=== PATIENT | female | born 1945 | race African-American/Black ===

== ENCOUNTER 2016-05-30 10:23 | Inpatient (IN) ==
[2016-05-30] MEDS ORDERED: 0.9 % Sodium Chloride 1,000 ML IVC ONE ×2 (10:26→13:13)
--- NOTE | 2016-05-30 10:30 | Emergency Department Note ---
Disposition Clinical Impression: Altered mental status, CVA (cerebral vascular accident), Abnormal liver function tests, Elevated troponin, Abnormal EKG, Frail elderly, Hyperlipidemia, Hypertension Disposition: Admitted As Inpatient Referrals: NO,PCP [Primary Care Provider] - Forms: ED Satisfaction Letter General Adult HPI - General Chief complaint: ED Altered Mental Status Stated complaint: Confusion Time Seen by Provider: 05/30/16 10:26 Source: patient, EMS, other (Home health nurse) - History of Present Illness HPI Narrative: 70-year-old female sent in from home via the patient's home health provider who came to check her. The patient was sent in by EMS for evaluation regarding confusion. The patient is reportedly not usually confused, the patient recognizes that has been confused for the last 3 days, and similar reports are obtained by EMS through the patient's home health provider. There is no history of fall or injury. The patient denies any chest pain shortness of breath or abdominal pain but reports she has a lot of gas. There is no history of vomiting or diarrhea. He has had a slight cough. There is no history of convulsion or headache neck stiffness or rash. No acute back pain. No trouble moving the arms or legs independently. No dysarthria. There is no history of bleeding, the patient does reportedly take NOAC type medication. There is no history of bowel or bladder dysfunction or urinary issues. No rashes reported or noted. The patient apparently knows her name and location but is confused as to dates and thinks it is 1964. Onset (ago): day(s) - Related Data Home Medications Medication Instructions Recorded Confirmed Albuterol Sulfate [Proair Hfa] 2 puff IH Q4H PRN 12/07/15 12/07/15 Alendronate Sodium [Fosamax] 70 mg PO QWEEK 12/07/15 12/07/15 Apixaban [Eliquis] 5 mg PO BID 12/07/15 12/07/15 Aspirin Enteric Coated [Aspirin EC] 81 mg PO DAILY 12/07/15 12/07/15 Calcium Carbonate/Vitamin D3 1 tab PO DAILY 12/07/15 12/07/15 [Calcium 500-Vit D3 400 Tablet] Cyclobenzaprine HCl 5 mg PO TID PRN 12/07/15 12/07/15 Esomeprazole Magnesium [Nexium] 40 mg PO DAILY 12/07/15 12/07/15 Famotidine [Pepcid] 20 - 40 mg PO DAILY 12/07/15 12/07/15 Fluticasone Propionate Nasal 1 spray NS DAILY 12/07/15 12/07/15 [Flonase] Fluticasone/Salmeterol [Advair 1 puff IH BID 12/07/15 12/07/15 250-50 Diskus] Folic Acid 1 mg PO DAILY 12/07/15 12/07/15 Furosemide [Lasix] 20 mg PO DAILY 12/07/15 12/07/15 Gabapentin [Neurontin] 800 mg PO TID 12/07/15 12/07/15 Guaifenesin [Mucinex] 600 mg PO BID 12/07/15 12/07/15 Ipratropium/Albuterol Neb [Duoneb] 3 ml IH Q6HR 12/07/15 12/07/15 Lisinopril 2.5 mg PO DAILY 12/07/15 12/07/15 Lubiprostone [Amitiza] 8 mcg PO BID 12/07/15 12/07/15 Magnesium Hydroxide [Milk of 10 ml PO DAILY PRN 12/07/15 12/07/15 Magnesia] Metoprolol XL (24 HR) Succ [Toprol 25 mg PO DAILY 12/07/15 12/07/15 Xl] Nitroglycerin [Nitrostat] 0.4 mg SL AD PRN 12/07/15 12/07/15 Rosuvastatin [Crestor] 20 mg PO HS 12/07/15 12/07/15 Sennosides [Senna] 8.6 mg PO DAILY PRN 12/07/15 12/07/15 Tiotropium [Spiriva] 1 cap IH DAILY 12/07/15 12/07/15 TraZODone 50 mg PO HS 12/07/15 12/07/15 Previous Rx's Medication Instructions Recorded Phosphorus #1 [K-Phos Neutral 250 mg PO TID #4 tablet 12/08/15 Tablet] Potassium Chloride 40 meq PO BID #4 tab.er.prt 12/08/15 Rosuvastatin [Crestor] 40 mg PO HS #60 tablet 12/08/15 Allergies Allergy/AdvReac Type Severity Reaction Status Date / Time steroids AdvReac See Uncoded 12/05/15 18:48 Comments All systems ED: reviewed and negative except as stated. Past Medical History - Past Medical History Medical history: Reports: GERD, hyperlipidemia, hypertension, other Surgical history: Reports: carotid endarterectomy Psychiatric history: Reports: anxiety - Social History Smoking Status: Current every day smoker Smokeless Tobacco Status: No Alcohol use: Reports: occasionally Drug use: Reports: none Physical Exam - General Limitations: no limitations General appearance: alert, in no apparent distress - Head Head exam: atraumatic, normocephalic, normal inspection - Eye Eye exam: Present: normal appearance, PERRL, EOMI. Absent: scleral icterus, conjunctival injection, miosis, mydriasis - ENT ENT exam: normal exam, normal oropharynx, mucous membranes moist, normal external ear exam - Neck Neck exam: Present: normal inspection, full ROM, trachea midline. Absent: tenderness - Chest Chest inspection: Present: symmetric chest wall rise. Absent: tenderness - Respiratory Respiratory exam: Present: normal lung sounds bilaterally. Absent: respiratory distress - Cardiovascular Cardiovascular exam: Present: regular rate, normal rhythm, normal heart sounds - Abdominal Exam Abdominal exam: Present: soft, Non-Tender. Absent: tenderness, distention, guarding, rebound, rigidity - Extremities Exam Extremities exam: Present: normal inspection, full ROM, normal capillary refill. Absent: tenderness, pedal edema, joint swelling, calf tenderness - Back Exam Back exam: Present: normal inspection, full ROM. Absent: tenderness, CVA tenderness (R), CVA tenderness (L), vertebral tenderness - Neurological Exam Neurological exam: Present: alert, CN II-XII intact. Absent: motor sensory deficit - Psychiatric Psychiatric exam: Present: normal affect, normal mood - Skin Skin exam: Present: warm, dry, intact, normal color. Absent: rash, cyanosis, diaphoresis, erythema, pallor, mottled Course Vital Signs Temperature 97.7 F 05/30/16 10:26 Pulse Rate 74 05/30/16 10:26 Respiratory Rate 16 05/30/16 10:26 Blood Pressure 84/43 05/30/16 10:26 O2 Sat by Pulse Oximetry 97 05/30/16 10:26 Temperature 97.7 F 05/30/16 10:26 Pulse Rate 78 05/30/16 11:26 Respiratory Rate 16 05/30/16 11:26 Blood Pressure 74/54 05/30/16 11:26 O2 Sat by Pulse Oximetry 97 05/30/16 11:26 Oxygen Delivery Oxygen Delivery Room Air Medical Decision Making - MDM Narrative Medical decision making narrative: The patient appears to have suffered an ischemic CVA. Her CT head called by radiology indicates a lesion consistent with ischemia although tumor is not fully excluded via CT. The patient is elderly, has an abnormal EKG, elevated troponin, abnormal CAT scan, acute confusion, secondary history includes some slight right upper extremity weakness and expressive aphasia. The patient is somewhat hypotensive. She is alert however following commands well. Does not have marked neurologic defects on physical examination. Based on her presentation, and multiple abnormal findings, I consulted the hospitalist on- call who has accepted the patient to their care. The patient was given aspirin and IV fluid. The patient is currently stable pending admission. Both the radiologist, hospitalist, and I all agree the patient will need an MRI which can be done inpatient. The patient is agreeable with admission, her brother is here with her who also is in favor. - Lab Data Lab results reviewed: Yes I reviewed the patient's lab results. Result diagrams: 05/30/16 10:47 05/30/16 10:47 Lab Results 05/30/16 05/30/16 05/30/16 Range/Units 10:47 10:47 10:47 WBC 6.5 (4.3-11.1) K/mcL RBC 4.72 (3.82-4.97) M/mcL Hgb 11.5 (11.5-15.4) g/dL Hct 38.7 (35.3-44.9) % MCV 82.0 L (83.0-100.0) fL MCH 24.4 L (28.0-33.3) pg MCHC 29.7 L (31.6-35.5) g/dL RDW 21.6 H (11.5-14.5) % Plt Count 152 (140-400) K/mcL MPV 10.8 (9.4-12.4) fL Immature Gran % 0.2 (0-4) % Seg Neutrophils % 80.1 % Lymphocytes % 13.0 % Monocytes % 6.3 % Eosinophils % 0.2 % Basophils % 0.2 % Neutrophils # 5.2 (1.6-8.9) K/mcL Lymphocytes # 0.9 (0.6-4.6) K/mcL Monocytes # 0.4 (0.0-1.3) K/mcL Eosinophils # 0.0 (0.0-0.6) K/mcL Basophils # 0.0 (0.0-0.2) K/mcL Nucleated RBCs/100 WBC 0.3 H (0) /100 WBC Platelet Estimate Normal (Normal) Immature Plt Fraction 5.3 (1.1-6.1) % Poikilocytosis 1+ A (Not Present) Helmet Cells Present A (Not Present) PT 9.8 (9.4-12.1) Seconds INR 0.9 APTT 25.6 L (26.0-36.0) Seconds Sodium 142 (136-145) mEq/L Potassium 3.1 L (3.5-4.5) mEq/L Chloride 105 (98-109) mEq/L Carbon Dioxide 30 H (19-29) mEq/L BUN 15 (7-20) mg/dL Creatinine 0.79 (0.57-1.11) mg/dL Est GFR ( Amer) > 60 (> 60) Est GFR (Non-Af Amer) > 60 (> 60) BUN/Creatinine Ratio 19 (6-26) Glucose 126 H (70-99) mg/dL Calculated Osmolality 296 (280-300) Lactic Acid (0.5-2.2) mmol/L Calcium 9.1 (8.6-10.8) mg/dL Total Bilirubin 0.4 (0.2-1.2) mg/dL Direct Bilirubin 0.2 (0.0-0.5) mg/dL Indirect Bilirubin 0.2 (0.0-1.2) mg/dL AST 48 H (5-34) Units/L ALT 73 H (0-55) Units/L Alkaline Phosphatase 94 (38-126) Units/L Ammonia (18-72) mcmol/L Troponin I (0-0.03) ng/mL C-Reactive Protein (Less than 5) mg/L Serum Total Protein 6.8 (6.0-8.3) g/dL Albumin 3.2 L (3.5-5.0) g/dL Globulin 3.6 H (2.4-3.5) g/dL Albumin/Globulin Ratio 0.9 L (1.1-2.2) TSH 2.303 (0.350-4.840) mcIU/mL Salicylates (15-30) mg/dL Acetaminophen (10-30) mcg/mL Ethyl Alcohol < 10 (0-10) mg/dL 05/30/16 05/30/16 05/30/16 Range/Units 10:47 10:47 10:47 WBC (4.3-11.1) K/mcL RBC (3.82-4.97) M/mcL Hgb (11.5-15.4) g/dL Hct (35.3-44.9) % MCV (83.0-100.0) fL MCH (28.0-33.3) pg MCHC (31.6-35.5) g/dL RDW (11.5-14.5) % Plt Count (140-400) K/mcL MPV (9.4-12.4) fL Immature Gran % (0-4) % Seg Neutrophils % % Lymphocytes % % Monocytes % % Eosinophils % % Basophils % % Neutrophils # (1.6-8.9) K/mcL Lymphocytes # (0.6-4.6) K/mcL Monocytes # (0.0-1.3) K/mcL Eosinophils # (0.0-0.6) K/mcL Basophils # (0.0-0.2) K/mcL Nucleated RBCs/100 WBC (0) /100 WBC Platelet Estimate (Normal) Immature Plt Fraction (1.1-6.1) % Poikilocytosis (Not Present) Helmet Cells (Not Present) PT (9.4-12.1) Seconds INR APTT (26.0-36.0) Seconds Sodium (136-145) mEq/L Potassium (3.5-4.5) mEq/L Chloride (98-109) mEq/L Carbon Dioxide (19-29) mEq/L BUN (7-20) mg/dL Creatinine (0.57-1.11) mg/dL Est GFR ( Amer) (> 60) Est GFR (Non-Af Amer) (> 60) BUN/Creatinine Ratio (6-26) Glucose (70-99) mg/dL Calculated Osmolality (280-300) Lactic Acid 1.4 (0.5-2.2) mmol/L Calcium (8.6-10.8) mg/dL Total Bilirubin (0.2-1.2) mg/dL Direct Bilirubin (0.0-0.5) mg/dL Indirect Bilirubin (0.0-1.2) mg/dL AST (5-34) Units/L ALT (0-55) Units/L Alkaline Phosphatase (38-126) Units/L Ammonia 18 (18-72) mcmol/L Troponin I 0.04 H* (0-0.03) ng/mL C-Reactive Protein (Less than 5) mg/L Serum Total Protein (6.0-8.3) g/dL Albumin (3.5-5.0) g/dL Globulin (2.4-3.5) g/dL Albumin/Globulin Ratio (1.1-2.2) TSH (0.350-4.840) mcIU/mL Salicylates (15-30) mg/dL Acetaminophen (10-30) mcg/mL Ethyl Alcohol (0-10) mg/dL 05/30/16 05/30/16 Range/Units 10:47 10:47 WBC (4.3-11.1) K/mcL RBC (3.82-4.97) M/mcL Hgb (11.5-15.4) g/dL Hct (35.3-44.9) % MCV (83.0-100.0) fL MCH (28.0-33.3) pg MCHC (31.6-35.5) g/dL RDW (11.5-14.5) % Plt Count (140-400) K/mcL MPV (9.4-12.4) fL Immature Gran % (0-4) % Seg Neutrophils % % Lymphocytes % % Monocytes % % Eosinophils % % Basophils % % Neutrophils # (1.6-8.9) K/mcL Lymphocytes # (0.6-4.6) K/mcL Monocytes # (0.0-1.3) K/mcL Eosinophils # (0.0-0.6) K/mcL Basophils # (0.0-0.2) K/mcL Nucleated RBCs/100 WBC (0) /100 WBC Platelet Estimate (Normal) Immature Plt Fraction (1.1-6.1) % Poikilocytosis (Not Present) Helmet Cells (Not Present) PT (9.4-12.1) Seconds INR APTT (26.0-36.0) Seconds Sodium (136-145) mEq/L Potassium (3.5-4.5) mEq/L Chloride (98-109) mEq/L Carbon Dioxide (19-29) mEq/L BUN (7-20) mg/dL Creatinine (0.57-1.11) mg/dL Est GFR ( Amer) (> 60) Est GFR (Non-Af Amer) (> 60) BUN/Creatinine Ratio (6-26) Glucose (70-99) mg/dL Calculated Osmolality (280-300) Lactic Acid (0.5-2.2) mmol/L Calcium (8.6-10.8) mg/dL Total Bilirubin (0.2-1.2) mg/dL Direct Bilirubin (0.0-0.5) mg/dL Indirect Bilirubin (0.0-1.2) mg/dL AST (5-34) Units/L ALT (0-55) Units/L Alkaline Phosphatase (38-126) Units/L Ammonia (18-72) mcmol/L Troponin I (0-0.03) ng/mL C-Reactive Protein 3 (Less than 5) mg/L Serum Total Protein (6.0-8.3) g/dL Albumin (3.5-5.0) g/dL Globulin (2.4-3.5) g/dL Albumin/Globulin Ratio (1.1-2.2) TSH (0.350-4.840) mcIU/mL Salicylates < 5.0 L (15-30) mg/dL Acetaminophen < 1.0 L (10-30) mcg/mL Ethyl Alcohol (0-10) mg/dL - Radiology Data Radiology results reviewed: Yes I reviewed the patient's radiology results.
[2016-05-30 10:55] LABS: Basophils % 0.2 %
[2016-05-30 10:57] LABS: Eosinophils % 0.2 %; Hematocrit 38.7 % (35.3-44.9); Hemoglobin 11.5 g/dL (11.5-15.4); Immature Granulocytes % 0.2 % (0-4); Immature Platelets 5.3 % (1.1-6.1); Lymphocytes # 0.9 K/mcL (0.6-4.6); Mean Corpuscular HGB Conc 29.7 g/dL (31.6-35.5); Mean Corpuscular Hemoglobin 24.4 pg (28.0-33.3); Mean Platelet Volume 10.8 fL (9.4-12.4); Monocytes # 0.4 K/mcL (0.0-1.3); Monocytes % 6.3 %; Neutrophils # 5.2 K/mcL (1.6-8.9); Nucleated Red Blood Cells 0.3 /100 WBC (0); Platelet Count 152 K/mcL (140-400); Red Blood Count 4.72 M/mcL (3.82-4.97); Red Cell Distribution Width 21.6 % (11.5-14.5); Segmented Neutrophils % 80.1 %
[2016-05-30 11:06] LABS: INR 0.9; Prothrombin Time 9.8 Seconds (9.4-12.1)
[2016-05-30 11:08] LABS: Activated Partial Thrombo Time 25.6 Seconds (26.0-36.0)
[2016-05-30 11:12] LABS: Alanine Aminotransferase 73 Units/L (0-55); Albumin 3.2 g/dL (3.5-5.0); Albumin/Globulin Ratio 0.9 (1.1-2.2); Alkaline Phosphatase 94 Units/L (38-126); Aspartate Amino Transferase 48 Units/L (5-34); BUN/Creatinine Ratio 19 (6-26); Bilirubin,Direct 0.2 mg/dL (0.0-0.5); Bilirubin,Indirect 0.2 mg/dL (0.0-1.2); Bilirubin,Total 0.4 mg/dL (0.2-1.2); Blood Urea Nitrogen 15 mg/dL (7-20); Calcium 9.1 mg/dL (8.6-10.8); Carbon Dioxide 30 mEq/L (19-29); Chloride 105 mEq/L (98-109); Ethanol < 10 mg/dL (0-10); Globulin 3.6 g/dL (2.4-3.5); Glucose 126 mg/dL (70-99); Osmolality,Calculated 296 (280-300); Potassium 3.1 mEq/L (3.5-4.5); Sodium 142 mEq/L (136-145); Total Protein 6.8 g/dL (6.0-8.3); eGFR For African Americans > 60 (> 60); eGFR For Non-African Americans > 60 (> 60)
[2016-05-30 11:13] LABS: Acetaminophen < 1.0 mcg/mL (10-30); Salicylate < 5.0 mg/dL (15-30)
[2016-05-30 11:18] LABS: Helmet Cells Present (Not Present); Platelet Estimate Normal (Normal)
[2016-05-30 11:19] LABS: Poikilocytosis 1+ (Not Present)
[2016-05-30] MEDS ORDERED: Aspirin 325 MG TABLET PO ONE (11:32)
[2016-05-30 11:34] LABS: Thyroid Stimulating Hormone 2.303 mcIU/mL (0.350-4.840)
[2016-05-30] MEDS ORDERED: Naloxone 0.4 MG/ML INJ IVP PRN (13:59)
[2016-05-30] MEDS ORDERED: MOM Conc 10 ML UD.LIQ PO PRN (14:02)
[2016-05-30] MEDS ORDERED: (Alendronate Sodium [Fosamax] 70 MG) PO SCH (14:15)
--- NOTE | 2016-05-30 14:41 | Internal Med History&Physical ---
Date of Encounter: 05/30/16 Time of Encounter: 13:00 Assessment and Plan (1) Altered mental status Current visit: Yes Status: Acute -Multifactorial, can be secondary to hypoxia as patient was found to be hypoxic upon arrival to the ER vs. persistent hypotension vs. acute ischemic changes found on CT head. -Mental status improved since arrival. Currently AAO x 3 -Unclear of baseline mental status and unable to get in touch with family -Follow up urine drug screen -Will closely monitor. Qualifiers: Altered mental status type: unspecified Qualified Code(s): R41.82 - Altered mental status, unspecified (2) CVA (cerebral vascular accident) Current visit: Yes Status: Acute CT head concerning for acute ischemic changes for left parietal lobe Last well known time was three days ago as reported by the patient f/u MRI head Neurology (Dr. Dias) consulted by ER physician Patient reports of being compliant with her home medications and is on anticoagulation with Eliquis Will hold anticoagulation until MRI head is completed f/u PT/OT eval f/u 2D echo f/u carotid dopplers Pt passed bedside dysphagia swallow eval Patient reports of not eating for the last three days and states she is extremely hungry at this time Qualifiers: CVA mechanism: unspecified Qualified Code(s): I63.9 - Cerebral infarction, unspecified (3) Hypotension Current visit: Yes Status: Acute of unclear etiology Will continue IV fluid challenge Currently asymptomatic HOld antihypertensive medications at this time continue to closely monitor BP, Maintain MAP>65 Qualifiers: Hypotension type: unspecified hypotension type Qualified Code(s): I95.9 - Hypotension, unspecified (4) Elevated troponin Current visit: Yes Status: Acute -History of CAD however noted to have new changes in EKG (inverted T waves on V4 , V5, V6), but denies chest pain -Cardiology Dr. Roth consulted -f/u serial TNI -patient received Aspirin 325mg PO in the ER (5) DVT prophylaxis Current visit: Yes Status: Acute EPCD (6) Cigarette smoker Current visit: Yes Status: Acute smoking cessation counseling provided patient not ready to quit at this time refused nicotine replacement therapy (7) COPD (chronic obstructive pulmonary disease) Current visit: Yes Status: Acute not in acute exacerbation not compliant with home oxygen unclear if patient is compliant with taking her home medications Qualifiers: COPD type: unspecified COPD Qualified Code(s): J44.9 - Chronic obstructive pulmonary disease, unspecified (8) CHF (congestive heart failure) Current visit: Yes Status: Acute not in acute exacerbation hold metoprolol and lasix at this time due to severe hypotension Qualifiers: Congestive heart failure type: diastolic Congestive heart failure chronicity: chronic Qualified Code(s): I50.32 - Chronic diastolic (congestive ) heart failure (9) Abnormal liver function tests Current visit: Yes Status: Acute of unclear etiology history of alcohol abuse but denies at this time follow up Hepatitis serologies monitor LFTs (10) Hypokalemia Current visit: Yes Status: Acute Potassium supplemented will continue to monitor electrolytes and replace as needed Internal Medicine - H&P: HPI Chief complaint: change in mental status Admitted From: Home Plans for Post Hospital Care: Transfer Longterm Facility History of present illness: Ms. Card is a 70 year old female with PMH of severe PAD s/p CEA, DVT in November 2011 on anticoagulation, HTN, HLD, COPD, CHF, CAD, vitamin D deficiency who is brought to the ER for evaluation of change in mental status. As per the ER physician, upon arrival patient was confused and only oriented to self and place. She was noted to have expressive aphasia. She was noted to be severe confused by her home health aide who called EMS for transfer to the ER. During my evaluation, patient is resting in bed, is AAO x 3, states she has been confused for the last three days. She didn't remember how to do any of her everyday chores. States she is supposed to be on home oxygen but does not use it as directed. She is an every day smoker. Patient is a poor historian and not able to provide complete history due to which med history is obtained from prior records. She reports of living alone and having family near by that help her with her groceries and doctor appointments. Reports of seeing her PCP last week. At this time she states she feels comfortable, denies any headache, lightheadedness, dizziness, chest pain, palpitations, sob, abd pain, n/v, fever , or chills. Reports of having diarrhea at home for the last few days but no episodes as of today. Pt was noted to be hypotensive in the ER and received 1L NS. She has documented history of hypertension,however has been known to have low BP readings during the past hospitalizations. Her CT head is also concerning for acute ischemia in the left parietal lobe and further evaluation by MRI is recommended. Patient was also noted to have positive TNI in the ER but denies any chest pain. Social Hx: Everyday smoker 1ppd x 30+years, occasional alcohol use Past Med Surg Social Fam HX - Past Medical History Medical history: COPD, coronary artery disease, GERD, hyperlipidemia, hypertension, other Psychiatric history: anxiety - Past Surgical History Surgical History: carotid endarterectomy - Social History Smoking Status: Current every day smoker Packs per day: < 1 pack Smokeless Tobacco Status: No Alcohol use: occasionally Drug use: none - Family History Mother Family Member Ethnicity: Non- Living Status: Cause of : Cancer Hx Family Cardiac Disorders: Yes (HTN) Hx Family Cancer: Yes Internal Medicine - H&P: Meds Albuterol Sulfate [Proair Hfa] 2 puff IH Q4H PRN 12/07/15 [History] Alendronate Sodium [Fosamax] 70 mg PO QWEEK 12/07/15 [History] Apixaban [Eliquis] 5 mg PO BID 12/07/15 [History] Aspirin Enteric Coated [Aspirin EC] 81 mg PO DAILY 12/07/15 [History] Calcium Carbonate/Vitamin D3 [Calcium 500-Vit D3 400 Tablet] 1 tab PO DAILY [History] Cyclobenzaprine HCl 5 mg PO TID PRN 12/07/15 [History] Esomeprazole Magnesium [Nexium] 40 mg PO DAILY 12/07/15 [History] Famotidine [Pepcid] 20 - 40 mg PO BID 12/07/15 [History] Fluticasone Propionate Nasal [Flonase] 2 spray NS DAILY 12/07/15 [History] Fluticasone/Salmeterol [Advair 250-50 Diskus] 1 puff IH BID 12/07/15 [History] Folic Acid 1 mg PO DAILY 12/07/15 [History] Furosemide [Lasix] 20 mg PO DAILY 12/07/15 [History] Gabapentin [Neurontin] 800 mg PO TID 12/07/15 [History] Guaifenesin [Mucinex] 600 mg PO BID 12/07/15 [History] Ipratropium/Albuterol Neb [Duoneb] 3 ml IH Q6HR 12/07/15 [History] Lubiprostone [Amitiza] 8 mcg PO BID 12/07/15 [History] Magnesium Hydroxide [Milk of Magnesia] 10 ml PO DAILY PRN 12/07/15 [History] Metoprolol XL (24 HR) Succ [Toprol Xl] 25 mg PO DAILY 12/07/15 [History] Nitroglycerin [Nitrostat] 0.4 mg SL AD PRN 12/07/15 [History] Sennosides [Senna] 8.6 mg PO DAILY PRN 12/07/15 [History] Tiotropium [Spiriva] 1 cap IH DAILY 12/07/15 [History] Phosphorus #1 [K-Phos Neutral Tablet] 250 mg PO TID #4 tablet 12/08/15 [Rx] Rosuvastatin [Crestor] 40 mg PO HS #60 tablet 12/08/15 [Rx] Clopidogrel [Plavix] 75 mg PO DAILY 05/30/16 [History] Ezetimibe [Zetia] 10 mg PO DAILY 05/30/16 [History] Potassium Chloride 20 meq PO BID 05/30/16 [History] Allergies steroids Adverse Reaction (Uncoded 12/05/15 18:48) See Comments "make my eyes go closed" All Systems PM: A 10-system review of systems was performed and is negative for pertinent findings except as documented above in the HPI. - Constitutional Constitutional: as per HPI - Constitutional Vitals: Temp Pulse Resp BP Pulse Ox 98.0 F 88 17 70/50 95 05/30/16 13:56 05/30/16 13:56 05/30/16 13:56 05/30/16 14:01 05/30/16 13:56 General appearance: Present: cooperative, A&O X 3, no acute distress, underweight, answers questions appropriately - Head Head exam: Present: atraumatic, normocephalic - Eye Eye exam: Present: EOMI, PERRL, conjuntiva pink, sclera anicteric - Respiratory Respiratory exam: Present: CTAB. Absent: respiratory distress, wheezes - Cardiovascular Cardiovascular exam: Present: RRR, +S1, +S2. Absent: diastolic murmur, systolic murmur - GI/Abdominal GI/Abdominal exam: Present: normal bowel sounds, soft. Absent: distended, tenderness - Extremities Exam Extremities exam: Present: warm, radial pulses palpable and symetrical. Absent : calf tenderness, pedal edema - Neurological Exam Neurological exam: Present: alert, oriented X3, no focal deficits. Absent: pronater drift, facial droop, speech deficit - Psychiatric Psychiatric exam: Present: normal affect, normal mood Internal Med - H&P Results - Labs CBC & Chem 7: 05/30/16 10:47 05/30/16 10:47
[2016-05-30] MEDS: Gabapentin 400 MG CAPSULE PO SCH ×2 (14:55→20:19)
[2016-05-30] MEDS ORDERED: 0.9 % Sodium Chloride 1,000 ML IVC SCH (15:00)
[2016-05-30] MEDS ORDERED: Potassium Chloride 40 MEQ, Lidocaine 1% 2 ML in D5% in Water 500 ML IVPB ONE (15:01)
[2016-05-30] MEDS ORDERED: Ipratropium/Albuterol Neb 3 ML IH ONE (15:51)
[2016-05-30] MEDS ORDERED: Potassium Chloride Elixir 20 MEQ/15 ML UDC GTUBE ONE (15:57)
[2016-05-30 17:23] LABS: Bilirubin,Urine Negative (Negative); Blood,Urine Negative (Negative); Clarity,Urine Clear (Clear); Color,Urine Yellow (Yellow); Glucose,Urine (UA) Normal (Normal); Ketones,Urine Negative (Negative); Leukocyte Esterase,Urine Negative (Negative); Nitrite,Urine Negative (Negative); Protein,Urine 30 mg/dL (Neg-Trace); Specific Gravity,Urine 1.016 (1.010-1.025); Urobilinogen,Urine Normal (Normal)
[2016-05-30 17:26] LABS: Bacteria,Urine None Seen per hpf (None-Few); Hyaline Casts,Urine None Seen per lpf (None-Few); Squamous Epithelial Cell,Urine Many per lpf (None-Few); WBC,Urine 0-3 per hpf (0-3)
[2016-05-30 17:29] LABS: Amphetamine Screen,Urine Negative ng/mL (Cutoff=1000); Barbiturate Screen,Urine Negative ng/mL (Cutoff=200); Benzodiazepines Screen,Urine Negative ng/mL (Cutoff=200); Cannabinoid Screen,Urine Negative ng/mL (Cutoff = 50); Cocaine Screen,Urine Negative ng/mL (Cutoff= 300); Opiate Screen,Urine Negative ng/mL (Cutoff=300); Phencyclidine Screen,Urine Negative ng/mL (Cutoff=25)
--- NOTE | 2016-05-30 17:50 | ECHO - Doppler Report ---
Echocardiogram Name: John Card Date of Study: 05/30/2016 Date: 1945 Ht: 66.0 in Medical Record#: [id number] Age: 70 Wt: 115.0 lb Gender: Female BSA: 1.58 Order #: [id number] Location: [facility] Room #: 3B22 Reading Physician: Veronica Roth DO Laboratory Director: Rosa Nunez Ordering Physician: Barb Harris MD Primary Physician: None Indications: r/o wall motion abnormality, r/o aortic dissection Impressions: Technically challenging study-patient laying supine for exam. LV systolic function appears mildly reduced with new SWMA when compared to prior echo 12/07/2015. EF 45% Moderate concentric hypertrophy of the left ventricle. There is evidence of mild diastolic dysfunction of the left ventricle. Normal right ventricular size and function. Mild aortic regurgitation. Mild mitral regurgitation. Estimated RVSP was 24 mmHg. No pulmonary hypertension. Suboptimal image quality of the proximal ascending aorta. Images available do not demonstrate acute findings. Recommend dedicated CT imaging for further evaluation. Left Ventricular Wall Motion: Rest Echo Findings The apex, apical anterior, mid anterior, basal anterior, apical septal and mid anterior septal castro were hypokinetic. The apical inferior wall was not visualized. All other wall segments showed normal motion. Findings: Study Quality * Technically sub-optimal due to clinical status. The Apical 2 chamber view may be off-axis. ECG Findings * Normal sinus rhythm. Aortic Valve * Mild aortic regurgitation. * Aortic valve not well visualized. * No aortic stenosis. Mitral Valve * Moderate mitral annular calcification * Normal mitral valve structure. * No mitral stenosis. * Mild mitral regurgitation. Left Ventricle * Moderate concentric left ventricular hypertrophy. * Mild left ventricular diastolic dysfunction. * LVEF 45%. Tricuspid Valve * Tricuspid valve not well visualized. * Trace tricuspid regurgitation. * Estimated RA pressure is 3 mmHg. * Estimated RVSP is 24 mmHg. * No pulmonary hypertension. Pulmonic Valve * Pulmonic valve is not well visualized. * No pulmonic stenosis. * No pulmonic regurgitation. Pulmonary Artery * Pulmonary artery not well visualized. Right Ventricle * Normal right ventricular structure and function. Right Atrium * Normal right atrial size. Left Atrium * Moderately dilated left atrium. Interatrial Septum * No evidence of PFO by color Doppler. IVC * Normal IVC dimensions and inspiratory collapse. Pericardium * There is no pericardial effusion present. Aorta * Images available do not demonstrate acute findings but image quality is suboptimal. History History of Smoking Years 30 Packs 0.5 Family History of CAD History of CAD/PTCA 12/07/2015 a Previous Echo was performed. Measurements: BP: 75/ 51 2D Normal Values IVSd: .90 cm 0.6 - 1.0 cm LVIDd: 5.70 cm 3.7 - 5.6 cm LVPWd: .80 cm 0.6 - 1.1 cm LVIDs: 4.40 cm 1.5 - 3.6 cm AO: 2.60 cm < 4.0 cm LA: 3.00 cm 2.0 - 4.0cm %FS: 22.80 cm >25 % LA volume: 48 Mitral Valve Peak E:.78 m/sec Peak A:.86 m/sec E/A Ratio:0.9 Peak E' Lat Rahat:7.31 cm/s Peak E' Med Rahat:3.31 cm/s E/E' Lat Ratio:10.6 E/E' Med Ratio:23.4 Tricuspid Valve TV Regurg Peak Grad: 21.00mmHg TV Regurg Peak Rahat: 2.29m/sec Updated by Veronica Roth on 05/30/2016 5:40:35 PM electronically signed on 05/30/2016 5:44:46 PM with status of Final Wall Motion Mendes: 1=Normal, 2=Hypokinesis, 3=Akinesis, 4=Dyskinesis, 5=Aneurysmal, 6=Hyperkinetic, X=Not Visualized (Blank)=Missing
[2016-05-30] MEDS ORDERED: Ipratropium/Albuterol Neb 3 ML IH SCH (18:00)
[2016-05-30] MEDS: Famotidine 20 MG TABLET PO SCH (20:18)
--- NOTE | 2016-05-30 20:41 | Pulmonology Consult Note ---
<Karsten Coe - Last Filed: 05/30/16 20:36> Date of Encounter: 05/30/16 Time of Encounter: 20:37 Assessment and Plan (1) CVA (cerebral vascular accident) Current Visit: Yes Status: Acute MRI shows area of multiple emboli concerning for carotid plaque source. At this time it appears the patients symptoms have resolved. Currently on aspirin/ plavix. Neurology has been consulted. Carotid u/s pending. Possible vascular surgery consult depending on carotid u/s result. PT/OT consult in AM Qualifiers: CVA mechanism: embolism Precerebral and cerebral artery: unspecified cerebral artery Qualified Code(s): I63.40 - Cerebral infarction due to embolism of unspecified cerebral artery (2) Hypotension Current Visit: No Status: Chronic Patient was initially transferred to the ICU for concerns for hypotension, however after talking with family the patients baseline BP appears to be on the low side. There is also some difficulty in obtaining a blood pressure non invasively, likely due to severe peripheral arterial disease. A BP in the lower leg revealed a good blood pressure. No evidence of hypoperfusion, patient mentating well at this time. Patient received a total of 3 liters, will hold of on any more fluids at this time given underlying HF. Will continue to monitor. Qualifiers: Hypotension type: unspecified hypotension type Qualified Code(s): I95.9 - Hypotension, unspecified (3) Severe peripheral arterial disease Current Visit: No Status: Chronic Extensive, patient has had R CEA in the past. Concern for stenosis given emboli distribution on MRI, Carotid u/s pending. (4) CHF (congestive heart failure) Current Visit: Yes Status: Acute EF 45%. Does not appear to be in acute exacerbation at this time. Will monitor BP and fluid status, patient may require diuresis given the amount of fluid she received. Will continue to monitor Qualifiers: Congestive heart failure type: systolic Congestive heart failure chronicity : chronic Qualified Code(s): I50.22 - Chronic systolic (congestive) heart failure (5) DVT prophylaxis Current Visit: Yes Status: Acute EPCDs at this time History of Present Illness Consult date: 05/30/16 Requesting physician: Barb Harris Reason for consult: other (hypotension) Chief complaint: Hypotension History of present illness: Patient is a 70 year old female with history of TIA, carotid stenosis, PAD who presented with AMS. Patient states for the last 3 days prior to arrival she felt somewhat confused. She could not remember how to make a cup of coffee or light a cigarette. She states she felt like she was in a fog. She cannot remember if she had any numbness, tingling, weakness, facial droop, speech slurring. At the time of my exam the patient states she feels like her normal self. She feels her confusion has resolved. She denies any fever, chills, pain, dyspnea, chest pain, nausea, vomiting, diarrhea. Past Med Surg Social Fam HX - Past Medical History Medical history: COPD, coronary artery disease, GERD, hyperlipidemia, hypertension, other Psychiatric history: anxiety - Past Surgical History Surgical History: carotid endarterectomy - Social History Smoking Status: Current every day smoker Packs per day: < 1 pack Smokeless Tobacco Status: No Alcohol use: occasionally Drug use: none - Family History Mother Family Member Ethnicity: Non- Living Status: Cause of : Cancer Hx Family Cardiac Disorders: Yes (HTN) Hx Family Cancer: Yes Medications and Allergies Albuterol Sulfate [Proair Hfa] 2 puff IH Q4H PRN 12/07/15 [History] Alendronate Sodium [Fosamax] 70 mg PO QWEEK 12/07/15 [History] Apixaban [Eliquis] 5 mg PO BID 12/07/15 [History] Aspirin Enteric Coated [Aspirin EC] 81 mg PO DAILY 12/07/15 [History] Calcium Carbonate/Vitamin D3 [Calcium 500-Vit D3 400 Tablet] 1 tab PO DAILY [History] Cyclobenzaprine HCl 5 mg PO TID PRN 12/07/15 [History] Esomeprazole Magnesium [Nexium] 40 mg PO DAILY 12/07/15 [History] Famotidine [Pepcid] 20 - 40 mg PO BID 12/07/15 [History] Fluticasone Propionate Nasal [Flonase] 2 spray NS DAILY 12/07/15 [History] Fluticasone/Salmeterol [Advair 250-50 Diskus] 1 puff IH BID 12/07/15 [History] Folic Acid 1 mg PO DAILY 12/07/15 [History] Furosemide [Lasix] 20 mg PO DAILY 12/07/15 [History] Gabapentin [Neurontin] 800 mg PO TID 12/07/15 [History] Guaifenesin [Mucinex] 600 mg PO BID 12/07/15 [History] Ipratropium/Albuterol Neb [Duoneb] 3 ml IH Q6HR 12/07/15 [History] Lubiprostone [Amitiza] 8 mcg PO BID 12/07/15 [History] Magnesium Hydroxide [Milk of Magnesia] 10 ml PO DAILY PRN 12/07/15 [History] Metoprolol XL (24 HR) Succ [Toprol Xl] 25 mg PO DAILY 12/07/15 [History] Nitroglycerin [Nitrostat] 0.4 mg SL AD PRN 12/07/15 [History] Sennosides [Senna] 8.6 mg PO DAILY PRN 12/07/15 [History] Tiotropium [Spiriva] 1 cap IH DAILY 12/07/15 [History] Phosphorus #1 [K-Phos Neutral Tablet] 250 mg PO TID #4 tablet 12/08/15 [Rx] Rosuvastatin [Crestor] 40 mg PO HS #60 tablet 12/08/15 [Rx] Clopidogrel [Plavix] 75 mg PO DAILY 05/30/16 [History] Ezetimibe [Zetia] 10 mg PO DAILY 05/30/16 [History] Potassium Chloride 20 meq PO BID 05/30/16 [History] Allergies steroids Adverse Reaction (Uncoded 12/05/15 18:48) See Comments "make my eyes go closed" All Systems: A 10-system review of systems was performed and is negative for pertinent findings except as documented above in the HPI. - Constitutional Constitutional: no chills, no fever(s) - EENT Nose, mouth and throat: no change in voice, no headache(s) - Cardiovascular Cardiovascular: no chest pain, no dyspnea - Respiratory Respiratory: no cough, no dyspnea - Gastrointestinal Gastrointestinal: no abdominal pain, no diarrhea, no nausea, no vomiting - Genitourinary Genitourinary: no dysuria - Musculoskeletal Musculoskeletal: no numbness, no stiffness, no tingling - Neurological Neurological: behavioral changes, confusion, dizziness, lack of coordination, memory loss, no frequent falls, no numbness, no tingling, no weakness, no other visual disturbances Physical Examination Vital Signs: Vital Signs, Last 4 Hours Temp Pulse Resp BP Pulse Ox 05/30/16 20:00 68 16 96/53 99 05/30/16 19:00 97 F L 75 18 85/61 97 05/30/16 18:30 75 18 88/53 97 05/30/16 17:43 98 05/30/16 17:32 97 F L 100 19 95/48 98 General appearance: no acute distress ENT: oropharynx moist Effort: normal Auscultation: bilateral: clear Cardiovascular: regular rate and rhythm Gastrointestinal: normoactive bowel sounds, soft, non-tender, non-distended Integumentary: normal Extremities: no cyanosis, no edema, no clubbing normal mental status, non-focal exam, pupils equal and round, CN II-XII normal, motor strength normal and symmetric, other (A and O x3. 5/5 strength throughout , senstation intact throughout. No defecits noted) Results - Laboratory Findings CBC and BMP: 05/30/16 10:47 05/30/16 10:47 PT/INR, D-dimer PT 9.8 Seconds (9.4-12.1) 05/30/16 10:47 Abnormal lab findings: Abnormal lab results MCV 82.0 fL (83.0-100.0) L 05/30/16 10:47 MCH 24.4 pg (28.0-33.3) L 05/30/16 10:47 MCHC 29.7 g/dL (31.6-35.5) L 05/30/16 10:47 RDW 21.6 % (11.5-14.5) H 05/30/16 10:47 Nucleated RBCs/100 WBC 0.3 /100 WBC (0) H 05/30/16 10:47 Poikilocytosis 1+ (Not Present) A 05/30/16 10:47 Helmet Cells Present (Not Present) A 05/30/16 10:47 APTT 25.6 Seconds (26.0-36.0) L 05/30/16 10:47 Potassium 3.1 mEq/L (3.5-4.5) L 05/30/16 10:47 Carbon Dioxide 30 mEq/L (19-29) H 05/30/16 10:47 Glucose 126 mg/dL (70-99) H 05/30/16 10:47 POC Glucose 170 (58-89) H 05/30/16 17:31 AST 48 Units/L (5-34) H 05/30/16 10:47 ALT 73 Units/L (0-55) H 05/30/16 10:47 Albumin 3.2 g/dL (3.5-5.0) L 05/30/16 10:47 Globulin 3.6 g/dL (2.4-3.5) H 05/30/16 10:47 Albumin/Globulin Ratio 0.9 (1.1-2.2) L 05/30/16 10:47 Urine Protein 30 mg/dL (Neg-Trace) H 05/30/16 17:18 Urine Microscopic RBC 3-5 per hpf (0-3) H 05/30/16 17:18 Ur Squamous Epith Cells Many per lpf (None-Few) H 05/30/16 17:18 Salicylates < 5.0 mg/dL (15-30) L 05/30/16 10:47 Acetaminophen < 1.0 mcg/mL (10-30) L 05/30/16 10:47 - Clinical Findings Intake & Output: Intake & Output 05/30/16 05/30/16 05/30/16 07:59 15:59 23:59 Intake Total 1999 Balance 1999 Weight 52.208 kg Consult Discharge Plan - Plan Referrals: NO,PCP [Primary Care Provider] - <Vanessa Wheeler - Last Filed: 05/30/16 22:00> Date of Encounter: 05/30/16 All Systems: A 10-system review of systems was performed and is negative for pertinent findings except as documented above in the HPI. Physical Examination Vital Signs: Vital Signs, Last 4 Hours Temp Pulse Resp BP Pulse Ox 05/30/16 21:06 18 99 05/30/16 21:00 73 18 95/67 99 05/30/16 20:49 97.7 F 05/30/16 20:00 68 16 96/53 99 05/30/16 19:00 97 F L 75 18 85/61 97 05/30/16 18:30 75 18 88/53 97 Results - Laboratory Findings CBC and BMP: 05/30/16 10:47 05/30/16 10:47 PT/INR, D-dimer PT 9.8 Seconds (9.4-12.1) 05/30/16 10:47 Abnormal lab findings: Abnormal lab results MCV 82.0 fL (83.0-100.0) L 05/30/16 10:47 MCH 24.4 pg (28.0-33.3) L 05/30/16 10:47 MCHC 29.7 g/dL (31.6-35.5) L 05/30/16 10:47 RDW 21.6 % (11.5-14.5) H 05/30/16 10:47 Nucleated RBCs/100 WBC 0.3 /100 WBC (0) H 05/30/16 10:47 Poikilocytosis 1+ (Not Present) A 05/30/16 10:47 Helmet Cells Present (Not Present) A 05/30/16 10:47 APTT 25.6 Seconds (26.0-36.0) L 05/30/16 10:47 Potassium 3.1 mEq/L (3.5-4.5) L 05/30/16 10:47 Carbon Dioxide 30 mEq/L (19-29) H 05/30/16 10:47 Glucose 126 mg/dL (70-99) H 05/30/16 10:47 POC Glucose 170 (58-89) H 05/30/16 17:31 AST 48 Units/L (5-34) H 05/30/16 10:47 ALT 73 Units/L (0-55) H 05/30/16 10:47 Albumin 3.2 g/dL (3.5-5.0) L 05/30/16 10:47 Globulin 3.6 g/dL (2.4-3.5) H 05/30/16 10:47 Albumin/Globulin Ratio 0.9 (1.1-2.2) L 05/30/16 10:47 Urine Protein 30 mg/dL (Neg-Trace) H 05/30/16 17:18 Urine Microscopic RBC 3-5 per hpf (0-3) H 05/30/16 17:18 Ur Squamous Epith Cells Many per lpf (None-Few) H 05/30/16 17:18 Salicylates < 5.0 mg/dL (15-30) L 05/30/16 10:47 Acetaminophen < 1.0 mcg/mL (10-30) L 05/30/16 10:47 - Clinical Findings Intake & Output: Intake & Output 05/30/16 05/30/16 05/30/16 07:59 15:59 23:59 Intake Total 1999 Balance 1999 Weight 52.208 kg - Attending Attestation I examined this patient and my medical decision-making was reviewed with the SPRAY FOAM INSTALLER/PA/Advanced Practice Nurse/Resident Physician. I agree with the documented findings, disposition and treatment plan as described except to the extent set forth below. Patient seen and examined. Labs, radiology, chart personally reviewed. Agree with resident's history and physical, assessment, plan with following comments: LABORATORY IMMUNOLOGIST: Patient follows commands, Pulmonary: Acceptable oxygenation and ventilation Cardiovascular: stable, even though her BP is low, but this is normal for her since there is no signs of hypeperfusion of any organ. GI: Nutrition per dietary and GI prophylaxis per routine Heme: DVT prophylaxis per routine ID: Continue antibiotics and plan to de-escalation Renal; urine out put and renal funtion reviewed Endorcine: blood glucose is monitored Lines: all lines checked and no evidence of infections Skin: skin care to prevent pressure ulcers per nursing routine care Discussed with the hospitalist and will monitor in in ICU for 24 hours, if remain stable then will transfer to floor. Thank you for the consult.
[2016-05-30] MEDS ORDERED: APIXABAN 5 MG TABLET PO SCH (21:00)
[2016-05-30] MEDS: Budesonide/Formoterol 160/4.5 MDI IH SCH (21:02)
[2016-05-30] MEDS: Ipratropium/Albuterol Neb 3 ML IH SCH (21:02)
[2016-05-31 02:48] LABS: Basophils % 0.2 %; Eosinophils % 0.2 %; Immature Granulocytes % 0.2 % (0-4); Lymphocytes # 0.8 K/mcL (0.6-4.6); Lymphocytes % 14.2 %; Mean Corpuscular HGB Conc 29.4 g/dL (31.6-35.5); Mean Corpuscular Hemoglobin 24.6 pg (28.0-33.3); Mean Corpuscular Volume 83.5 fL (83.0-100.0); Mean Platelet Volume 10.9 fL (9.4-12.4); Monocytes # 0.5 K/mcL (0.0-1.3); Monocytes % 8.4 %; Neutrophils # 4.5 K/mcL (1.6-8.9); Platelet Count 129 K/mcL (140-400); Red Blood Count 3.95 M/mcL (3.82-4.97); Red Cell Distribution Width 21.2 % (11.5-14.5); Segmented Neutrophils % 76.8 %
[2016-05-31 02:56] LABS: Hemoglobin 9.7 g/dL (11.5-15.4)
[2016-05-31 03:02] LABS: Alanine Aminotransferase 52 Units/L (0-55); Albumin/Globulin Ratio 0.9 (1.1-2.2); Alkaline Phosphatase 65 Units/L (38-126); Aspartate Amino Transferase 39 Units/L (5-34); BUN/Creatinine Ratio 15 (6-26); Bilirubin,Direct 0.1 mg/dL (0.0-0.5); Bilirubin,Indirect 0.2 mg/dL (0.0-1.2); Bilirubin,Total 0.3 mg/dL (0.2-1.2); Blood Urea Nitrogen 10 mg/dL (7-20); Carbon Dioxide 25 mEq/L (19-29); Chloride 114 mEq/L (98-109); Globulin 2.6 g/dL (2.4-3.5); Glucose 126 mg/dL (70-99); Magnesium 1.7 mg/dL (1.6-2.6); Osmolality,Calculated 299 (280-300); Phosphorous 3.1 mg/dL (2.3-4.7); Sodium 144 mEq/L (136-145); eGFR For African Americans > 60 (> 60); eGFR For Non-African Americans > 60 (> 60)
[2016-05-31 03:03] LABS: Albumin 2.4 g/dL (3.5-5.0); Calcium 7.5 mg/dL (8.6-10.8)
[2016-05-31 03:05] LABS: Potassium 2.5 mEq/L (3.5-4.5)
[2016-05-31] MEDS ORDERED: Potassium Chloride Elixir 20 MEQ/15 ML UDC GTUBE STA (03:41)
[2016-05-31] MEDS ORDERED: Potassium Chloride 40 MEQ, Lidocaine 1% 2 ML in D5% in Water 500 ML IVPB STA (03:41)
[2016-05-31] MEDS: Ipratropium/Albuterol Neb 3 ML IH SCH ×4 (04:18→21:54)
--- NOTE | 2016-05-31 07:11 | Carotid Imaging Report ---
Carotid Duplex Patient Name:John Card Order Number:[id number] Procedure Date:05/30/2016 Date:8Age:70 yrs Gender:Female Lt BP:75 / 51 mmHg Rt.BP:95 / 48 mmHgHeart Rate: Location:[facility] Room #: ICU9 Program Developer:Rosa Nunez Referring MD:Barb Harris MD harvest supervisor:None Reading MD:John Barnard MD Primary Indications:Stroke Risk Factors Yes/No Hypertension Unknown Hypercholesterolemia Yes Smoking Current Yes Hx of CVA Yes Hx of CAD/PTCA Yes Impressions: The Right Common and Internal Carotid arteries are occulded. Left Proximal Internal Artery Plaque with 60-79% stenosis Recommendations: Risk Factor Modification, Medical Therapy, and Futher evaluation is recommended. After imaging the patient returned to their room. Findings Carotid Duplex: Right: There is nonstenotic plaque in the right vertebral artery with a PSV of 13 cm/s and a EDV of 4 cm/s. Left: There is nonstenotic plaque in the left proximal common carotid artery with a PSV of 108 cm/s and a EDV of 19 cm/s. There is smooth heterogeneous plaque. There is nonstenotic plaque in the left mid common carotid artery with a PSV of 132 cm/s and a EDV of 21 cm/s. There is smooth heterogeneous plaque. There is nonstenotic plaque in the left distal common carotid artery with a PSV of 177 cm/s and a EDV of 25 cm/s. There is smooth heterogeneous plaque. There is 40-59% stenosis in the left bifurcation with a PSV of 177 cm/s and a EDV of 26 cm/s. There is smooth, heterogeneous calcified plaque. There is 60-79% stenosis in the left proximal internal carotid artery with a PSV of 223 cm/s and a EDV of 44 cm/s. There is smooth heterogeneous plaque. There is 40-59% stenosis in the left mid internal carotid artery with a PSV of 209 cm/s and a EDV of 26 cm/s. There is smooth heterogeneous plaque. There is 60-79% stenosis in the left distal internal carotid artery with a PSV of 170 cm/s and a EDV of 40 cm/s. There is smooth heterogeneous plaque. There is nonstenotic plaque in the left eca with a PSV of 180 cm/s and a EDV of 19 cm/s. The left vertebral artery has a PSV of 26 cm/s and a EDV of 7 cm/s. Carotid Results Right PSV EDV Assessment Vertebral Artery 13 4 Non Stenotic Plaque Left PSV EDV Assessment Proximal CCA 108 19 Non Stenotic Plaque Mid CCA 132 21 Non Stenotic Plaque Distal CCA 177 25 Non Stenotic Plaque Bifurcation 177 26 40-59% stenosis Proximal ICA 223 44 60-79% stenosis Mid ICA 209 26 40-59% stenosis Distal ICA 170 40 60-79% stenosis ECA 180 19 Non Stenotic Plaque Vertebral Artery 26 7 Retrograde Flow Ratio's Right ICA/CCA Ratio: 0.00 ICA/CCA Values: 0/0 Left ICA/CCA Ratio: 1.69 ICA/CCA Values: 223/132 Updated by Jhon Barnard MD on 05/31/2016 7:04:00 AM electronically signed on 05/31/2016 7:05:02 AM with status of Final
[2016-05-31] MEDS: Gabapentin 400 MG CAPSULE PO SCH ×3 (08:10→21:10)
[2016-05-31] MEDS: Famotidine 20 MG TABLET PO SCH ×2 (08:11→21:10)
[2016-05-31] MEDS ORDERED: Furosemide 20 MG TABLET PO SCH (09:00)
[2016-05-31] MEDS ORDERED: Tiotropium 18 MCG inhalation IH SCH (09:00)
[2016-05-31] MEDS ORDERED: (Ezetimibe [Zetia] 10 MG) PO SCH (09:00)
[2016-05-31] MEDS ORDERED: Aspirin Enteric Coated 81 MG Tablet PO SCH (09:00)
[2016-05-31] MEDS ORDERED: Heparin 25,000 UNIT/500 ML D5W 25,000 UNIT/500 ML MLS IVC SCH (09:00)
[2016-05-31] MEDS ORDERED: Fluticasone Propionate Nasal 50 MCG/SPRAY BOTTLE NS SCH (09:00)
[2016-05-31] MEDS ORDERED: Folic Acid 1 MG TABLET PO SCH (09:00)
[2016-05-31] MEDS ORDERED: TUMS PO SCH (09:00)
--- NOTE | 2016-05-31 09:04 | Neurology - Consult Note ---
<Sahmar Palomo - Last Filed: 05/31/16 10:08> Date of Encounter: 05/31/16 Time of Encounter: 10:08 Assessment and Plan (1) CVA (cerebral vascular accident) Current Visit: Yes Status: Acute Patient presented to the hospital with 3 days of confusion at home. Patient had a CT scan of the head/brain which was reported as concern for an ischemic event with recommended MRI imaging. Brain MRI shows multiple infarcts in the left parietal region in the middle cerebral artery distribution consistent with an embolic event 2/2 the left carotid artery. Patient had a carotid duplex which shows occlusion of the right common and internal carotid arteries with a left proximal internal artery plaque 60-79% stenosis. In light of these findings her anticoagulation has been held and the patient will be started on heparin in lieu of evaluation by vascular surgery and likely endarterectomy due to symptomatic carotid stenosis. Qualifiers: CVA mechanism: embolism Precerebral and cerebral artery: carotid artery Laterality of affected vessel: left Qualified Code(s): I63.132 - 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 History of Present Illness Chief complaint: CVA HPI: Ms. Card is a 70 year old female with a history of hypertension, hyperlipidemia , COPD, CAD status post right endarterectomy who initially presented to the hospital with a chief complaint of altered mental status. Patient reports that she lives at home alone and has a home health aide who comes in and helps her. She reports for the last 3 days she seemed confused at home. She reports that she had a cigarette in her hand and just carried around and did not smoke.. She also reports that she tried to make a cup of coffee and was unable to do it. She is able to remember the events but states everything just seemed off. She denies any falls or trauma that she is aware of. In the emergency department patient a CT scan that was concerning for an ischemic event and recommended MRI. The patient was admitted to the hospital for evaluation. Neurology consulted due to acute infarction. Patient currently denies headaches , visual changes, neck pain, numbness, tingling, weakness, chest pain or shortness of breath. She reports that she is on L Abel she thinks because she has atrial fibrillation. However previous documentation and even cardiology consultations do not reference this and everything seems to show that she has had DVTs in the past. She is alert and oriented 2 and is a poor historian. She is able to follow most commands however she is ataxic on exam. She has global weakness with no focal or lateralizing features. Past Med Surg Social Fam HX - Past Medical History Attestation: Yes The following information was validated with the patient. Source: patient Medical history: COPD, coronary artery disease, GERD, hyperlipidemia, hypertension, other Psychiatric history: anxiety - Past Surgical History Surgical History: carotid endarterectomy - Social History Smoking Status: Current every day smoker Packs per day: < 1 pack Smokeless Tobacco Status: No Alcohol use: occasionally Drug use: none - Family History Mother Family Member Ethnicity: Non- Living Status: Cause of : Cancer Hx Family Cardiac Disorders: Yes (HTN) Hx Family Cancer: Yes Medications and Allergies Albuterol Sulfate [Proair Hfa] 2 puff IH Q4H PRN 12/07/15 [History] Alendronate Sodium [Fosamax] 70 mg PO QWEEK 12/07/15 [History] Apixaban [Eliquis] 5 mg PO BID 12/07/15 [History] Aspirin Enteric Coated [Aspirin EC] 81 mg PO DAILY 12/07/15 [History] Calcium Carbonate/Vitamin D3 [Calcium 500-Vit D3 400 Tablet] 1 tab PO DAILY [History] Cyclobenzaprine HCl 5 mg PO TID PRN 12/07/15 [History] Esomeprazole Magnesium [Nexium] 40 mg PO DAILY 12/07/15 [History] Famotidine [Pepcid] 20 - 40 mg PO BID 12/07/15 [History] Fluticasone Propionate Nasal [Flonase] 2 spray NS DAILY 12/07/15 [History] Fluticasone/Salmeterol [Advair 250-50 Diskus] 1 puff IH BID 12/07/15 [History] Folic Acid 1 mg PO DAILY 12/07/15 [History] Furosemide [Lasix] 20 mg PO DAILY 12/07/15 [History] Gabapentin [Neurontin] 800 mg PO TID 12/07/15 [History] Guaifenesin [Mucinex] 600 mg PO BID 12/07/15 [History] Ipratropium/Albuterol Neb [Duoneb] 3 ml IH Q6HR 12/07/15 [History] Lubiprostone [Amitiza] 8 mcg PO BID 12/07/15 [History] Magnesium Hydroxide [Milk of Magnesia] 10 ml PO DAILY PRN 12/07/15 [History] Metoprolol XL (24 HR) Succ [Toprol Xl] 25 mg PO DAILY 12/07/15 [History] Nitroglycerin [Nitrostat] 0.4 mg SL AD PRN 12/07/15 [History] Sennosides [Senna] 8.6 mg PO DAILY PRN 12/07/15 [History] Tiotropium [Spiriva] 1 cap IH DAILY 12/07/15 [History] Phosphorus #1 [K-Phos Neutral Tablet] 250 mg PO TID #4 tablet 12/08/15 [Rx] Rosuvastatin [Crestor] 40 mg PO HS #60 tablet 12/08/15 [Rx] Clopidogrel [Plavix] 75 mg PO DAILY 05/30/16 [History] Ezetimibe [Zetia] 10 mg PO DAILY 05/30/16 [History] Potassium Chloride 20 meq PO BID 05/30/16 [History] Allergies steroids Adverse Reaction (Uncoded 12/05/15 18:48) See Comments "make my eyes go closed" All Systems: A 10-system review of systems was performed and is negative for pertinent findings except as documented above in the HPI. - Constitutional Constitutional ROS IM: no fever(s), no headache(s), no weakness - Cardiovascular Cardiovascular ROS IM: no chest pain - Respiratory Respiratory IM: no dyspnea - Neurological Neurological ROS: confusion (Now resolving), no abnormal speech, no disequilibrium, no dizziness, no focal weakness, no frequent falls, no headache( s), no loss of vision, no numbness, no paresthesias, no sensory deficit, no syncope, no vertigo, no weakness Physical Examination - Vital Signs Vital Signs: Initial Vital Signs Temp Pulse Resp BP Pulse Ox 97.7 F 74 16 84/43 97 05/30/16 10:26 05/30/16 10:26 05/30/16 10:26 05/30/16 10:05/30/16 10:26 - Constitutional General appearance: comfortable - Neurologic Sensorimotor examination: intact Motor examination - right side: 4/5: deltoids, biceps, triceps, tibialis Anterior, quadriceps, plantarflexion Motor examination - left side: 4/5: deltoids, biceps, triceps, quadriceps, tibialis Anterior, plantarflexion Detailed sensory examination: intact Reflexes: Biceps: 2+, Patella: 2+ Mental Status Examination: awake, alert, oriented to person, oriented to place, follows commands appropriately, no aphasia, makes eye contact Cranial nerve examination: PERRL, EOMI, sensory to face intact, mastication intact, no facial asymmetry is present, no dysarthria, hearing is intact symmetrically Ataxia: left upper extremity (Bilateral upper extremity ataxia with finger to nose.) Results - Laboratory Findings CBC and BMP: 05/31/16 09:40 05/31/16 02:40 Abnormal lab findings: Abnormal lab results Hgb 9.7 g/dL (11.5-15.4) L D 05/31/16 02:40 Hct 33.0 % (35.3-44.9) L 05/31/16 02:40 MCH 24.6 pg (28.0-33.3) L 05/31/16 02:40 MCHC 29.4 g/dL (31.6-35.5) L 05/31/16 02:40 RDW 21.2 % (11.5-14.5) H 05/31/16 02:40 Plt Count 129 K/mcL (140-400) L 05/31/16 02:40 Nucleated RBCs/100 WBC 0.3 /100 WBC (0) H 05/30/16 10:47 Poikilocytosis 1+ (Not Present) A 05/30/16 10:47 Helmet Cells Present (Not Present) A 05/30/16 10:47 APTT 25.6 Seconds (26.0-36.0) L 05/30/16 10:47 Potassium 2.5 mEq/L (3.5-4.5) L* 05/31/16 02:40 Chloride 114 mEq/L (98-109) H 05/31/16 02:40 Glucose 126 mg/dL (70-99) H 05/31/16 02:40 POC Glucose 170 (58-89) H 05/30/16 17:31 Calcium 7.5 mg/dL (8.6-10.8) L D 05/31/16 02:40 AST 39 Units/L (5-34) H 05/31/16 02:40 Troponin I 0.04 ng/mL (0-0.03) H* 05/30/16 22:10 Serum Total Protein 5.0 g/dL (6.0-8.3) L D 05/31/16 02:40 Albumin 2.4 g/dL (3.5-5.0) L D 05/31/16 02:40 Albumin/Globulin Ratio 0.9 (1.1-2.2) L 05/31/16 02:40 Urine Protein 30 mg/dL (Neg-Trace) H 05/30/16 17:18 Urine Microscopic RBC 3-5 per hpf (0-3) H 05/30/16 17:18 Ur Squamous Epith Cells Many per lpf (None-Few) H 05/30/16 17:18 Salicylates < 5.0 mg/dL (15-30) L 05/30/16 10:47 Acetaminophen < 1.0 mcg/mL (10-30) L 05/30/16 10:47 - Diagnostic Findings Additional findings: Brain MRI, CT of the head, echocardiogram Consult Discharge Plan - Plan Referrals: NO,PCP [Non-Partnered Physician] - <Roberto Darling I - Last Filed: 05/31/16 12:00> Date of Encounter: 05/31/16 Assessment and Plan (1) CVA (cerebral vascular accident) Current Visit: Yes Status: Acute Seen and examined and agreed with Dr. Palomo history of physical as well as other findings. MRI of the brain has been reviewed it did show no evidence of left hemispheric infarct likely an embolic from her carotid artery disease. Luckily enough patient did not have any significant deficit, except Mild dysmetria, she has already been evaluated by vascular surgery suggested anticoagulation there was a concern of risk of hemorrhagic conversion due to the size of the infarct. Thus a valid concern and remains the other but at the same time because of significant carotid artery disease she had this a high discomfort and other embolic infarct at that could be a devastating stroke and patient could end up significant the motor or sensory symptoms in this scenario, and if it of anticoagulation is much higher than the risk of it I would suggest that we should proceed with, anticoagulation as recommended by vascular services but would recommend not to give any bolus and use only vascular protocol. She would benefit from surgical intervention, that could be done in several weeks depending on her clinical condition. Other workup is as per primary team continue to monitor her blood pressure at the same time continued to monitor her for any cardiac arrhythmias. She would benefit from physical therapy evaluation as well Qualifiers: CVA mechanism: embolism Precerebral and cerebral artery: carotid artery Laterality of affected vessel: left Qualified Code(s): I63.132 - 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 History of Present Illness HPI: Ms. Card is a 70 year old female All Systems: A 10-system review of systems was performed and is negative for pertinent findings except as documented above in the HPI. Physical Examination - Vital Signs Vital Signs: Initial Vital Signs Temp Pulse Resp BP Pulse Ox 97.7 F 74 16 84/43 97 05/30/16 10:26 05/30/16 10:26 05/30/16 10:26 05/30/16 10:26 05/30/16 10:26 Results - Laboratory Findings CBC and BMP: 05/31/16 09:40 05/31/16 02:40 Abnormal lab findings: Abnormal lab results Hgb 10.3 g/dL (11.5-15.4) L 05/31/16 09:40 Hct 35.1 % (35.3-44.9) L 05/31/16 09:40 MCH 24.7 pg (28.0-33.3) L 05/31/16 09:40 MCHC 29.3 g/dL (31.6-35.5) L 05/31/16 09:40 RDW 21.4 % (11.5-14.5) H 05/31/16 09:40 Plt Count 129 K/mcL (140-400) L 05/31/16 09:40 Nucleated RBCs/100 WBC 0.3 /100 WBC (0) H 05/30/16 10:47 Poikilocytosis 1+ (Not Present) A 05/30/16 10:47 Helmet Cells Present (Not Present) A 05/30/16 10:47 Potassium 2.5 mEq/L (3.5-4.5) L* 05/31/16 02:40 Chloride 114 mEq/L (98-109) H 05/31/16 02:40 Glucose 126 mg/dL (70-99) H 05/31/16 02:40 POC Glucose 170 (58-89) H 05/30/16 17:31 Calcium 7.5 mg/dL (8.6-10.8) L D 05/31/16 02:40 AST 39 Units/L (5-34) H 05/31/16 02:40 Troponin I 0.04 ng/mL (0-0.03) H* 05/30/16 22:10 Serum Total Protein 5.0 g/dL (6.0-8.3) L D 05/31/16 02:40 Albumin 2.4 g/dL (3.5-5.0) L D 05/31/16 02:40 Albumin/Globulin Ratio 0.9 (1.1-2.2) L 05/31/16 02:40 Urine Protein 30 mg/dL (Neg-Trace) H 05/30/16 17:18 Urine Microscopic RBC 3-5 per hpf (0-3) H 05/30/16 17:18 Ur Squamous Epith Cells Many per lpf (None-Few) H 05/30/16 17:18 Salicylates < 5.0 mg/dL (15-30) L 05/30/16 10:47 Acetaminophen < 1.0 mcg/mL (10-30) L 05/30/16 10:47
[2016-05-31] MEDS ORDERED: *HR* Heparin 5,000 UNIT/ML VIAL IVP PRN ×2 (09:05)
--- NOTE | 2016-05-31 09:17 | Cardiology Consult Note ---
Date of Encounter: 05/31/16 Time of Encounter: 09:17 Assessment and Plan (1) Elevated troponin Current Visit: Yes Status: Acute Ms. Card has flat and adynamic troponin elevation (0.04, 0.03, 0.04) without new ECG changes. Troponin elevation is likely a result of acute CVA. I did review her echo however that demonstrates mild reduction in EF and wall motion abnormalities. Images were no optimal. I recommend conservative management and repeating an echo as an outpatient with [facility]. She is asymptomatic without chest pain. Unfortunately, due to low blood pressures patient is unable to start BB. She is already on antiplatelet therapy and statin. I recommend initiation of a beta indy (such as Toprol XL 12.5 qd) when BP is able to tolerate. We will sign off. Please call with questions. She can follow up with me in the outpatient setting. Discussion w patient/family: The assessment and plan as outlined above was discussed with the patient and/or family members who expressed understanding and agreement. All questions were answered. Thank you for involving us in the care of your patient. Please call with any questions. History of Present Illness Consult date: 05/31/16 Requesting physician: Barb Harris Consult reason: Elevated troponin Chief complaint: Change in mental status History of present illness: Ms. Card is a 70 year old female brought to ER for change in mental status. She was noted to have expressive aphasia and underwent CT and MRI brain demonstrating multiple acute infarcts. She also had mild troponin elevation and ECG abnormalities. At the bedside, the patient is sitting up talking in no acute distress. She is appropriate in her conversation. She denies having recent chest pain. Past Med Surg Social Fam HX - Past Medical History Attestation: Yes The following information was validated with the patient. Medical history: COPD, coronary artery disease, GERD, hyperlipidemia, hypertension, other Psychiatric history: anxiety - Past Surgical History Surgical History: carotid endarterectomy - Social History Smoking Status: Current every day smoker Packs per day: < 1 pack Smokeless Tobacco Status: No Alcohol use: occasionally Drug use: none - Family History Mother Family Member Ethnicity: Non- Living Status: Cause of : Cancer Hx Family Cardiac Disorders: Yes (HTN) Hx Family Cancer: Yes Medications and Allergies Albuterol Sulfate [Proair Hfa] 2 puff IH Q4H PRN 12/07/15 [History] Alendronate Sodium [Fosamax] 70 mg PO QWEEK 12/07/15 [History] Apixaban [Eliquis] 5 mg PO BID 12/07/15 [History] Aspirin Enteric Coated [Aspirin EC] 81 mg PO DAILY 12/07/15 [History] Calcium Carbonate/Vitamin D3 [Calcium 500-Vit D3 400 Tablet] 1 tab PO DAILY [History] Cyclobenzaprine HCl 5 mg PO TID PRN 12/07/15 [History] Esomeprazole Magnesium [Nexium] 40 mg PO DAILY 12/07/15 [History] Famotidine [Pepcid] 20 - 40 mg PO BID 12/07/15 [History] Fluticasone Propionate Nasal [Flonase] 2 spray NS DAILY 12/07/15 [History] Fluticasone/Salmeterol [Advair 250-50 Diskus] 1 puff IH BID 12/07/15 [History] Folic Acid 1 mg PO DAILY 12/07/15 [History] Furosemide [Lasix] 20 mg PO DAILY 12/07/15 [History] Gabapentin [Neurontin] 800 mg PO TID 12/07/15 [History] Guaifenesin [Mucinex] 600 mg PO BID 12/07/15 [History] Ipratropium/Albuterol Neb [Duoneb] 3 ml IH Q6HR 12/07/15 [History] Lubiprostone [Amitiza] 8 mcg PO BID 12/07/15 [History] Magnesium Hydroxide [Milk of Magnesia] 10 ml PO DAILY PRN 12/07/15 [History] Metoprolol XL (24 HR) Succ [Toprol Xl] 25 mg PO DAILY 12/07/15 [History] Nitroglycerin [Nitrostat] 0.4 mg SL AD PRN 12/07/15 [History] Sennosides [Senna] 8.6 mg PO DAILY PRN 12/07/15 [History] Tiotropium [Spiriva] 1 cap IH DAILY 12/07/15 [History] Phosphorus #1 [K-Phos Neutral Tablet] 250 mg PO TID #4 tablet 12/08/15 [Rx] Rosuvastatin [Crestor] 40 mg PO HS #60 tablet 12/08/15 [Rx] Clopidogrel [Plavix] 75 mg PO DAILY 05/30/16 [History] Ezetimibe [Zetia] 10 mg PO DAILY 05/30/16 [History] Potassium Chloride 20 meq PO BID 05/30/16 [History] Allergies steroids Adverse Reaction (Uncoded 12/05/15 18:48) See Comments "make my eyes go closed" All Systems Review: A 10-system review of systems was performed and is negative for pertinent findings except as documented above in the HPI. - Cardiovascular Cardiovascular: as per HPI Physical Examination Vital Signs, Last 4 Hours Temp Pulse Resp BP Pulse Ox 05/31/16 08:43 106 19 85/42 94 L 05/31/16 07:45 84 19 94/52 95 05/31/16 07:41 97.7 F 05/31/16 05:45 81 20 86/37 98 General: Conversant, No Apparent Distress Neck: No JVD Cardiac: Reg Rate and Rhythm, Normal S1 and S2, No Murmur Lungs: Normal Breath Sounds Neuro: Alert and responsive, Other (no apparent deficits that I can appreciate) Extremities: No Edema Results 05/31/16 09:40 05/31/16 02:40 Lab Results 05/30/16 05/30/16 05/31/16 18:09 22:10 02:40 WBC 5.8 Hgb 9.7 L D Hct 33.0 L Plt Count 129 L Sodium Potassium Chloride Carbon Dioxide BUN Creatinine Glucose Calcium Magnesium Total Bilirubin AST ALT Alkaline Phosphatase Troponin I 0.03 0.04 H* 05/31/16 02:40 WBC Hgb Hct Plt Count Sodium 144 Potassium 2.5 L* Chloride 114 H Carbon Dioxide 25 BUN 10 Creatinine 0.67 Glucose 126 H Calcium 7.5 L D Magnesium 1.7 Total Bilirubin 0.3 AST 39 H ALT 52 Alkaline Phosphatase 65 Troponin I - EKG Interpretation EKG results cardiology: personally reviewed (nonspecific ST abnormality similar when compared to ECG in November 2015) Consult Discharge Plan - Plan Referrals: Mo Hernandes MD [Partnered Physician] - 06/05/16 3:40 pm NO,PCP [Non-Partnered Physician] -
[2016-05-31 09:58] LABS: Hematocrit 35.1 % (35.3-44.9); Hemoglobin 10.3 g/dL (11.5-15.4); Mean Corpuscular HGB Conc 29.3 g/dL (31.6-35.5); Mean Corpuscular Hemoglobin 24.7 pg (28.0-33.3); Mean Corpuscular Volume 84.2 fL (83.0-100.0); Red Blood Count 4.17 M/mcL (3.82-4.97); Red Cell Distribution Width 21.4 % (11.5-14.5)
[2016-05-31 10:04] LABS: INR 0.9; Prothrombin Time 9.6 Seconds (9.4-12.1)
[2016-05-31 10:06] LABS: Activated Partial Thrombo Time 26.4 Seconds (26.0-36.0)
[2016-05-31] MEDS: Ampicillin/Sulbactam 3,000 MG in 0.9 % Sodium Chloride Mini Bag 100 ML IVPB SCH ×2 (11:05→15:45)
[2016-05-31 11:24] LABS: Hepatitis A Antibody IgM Nonreactive (Nonreactive); Hepatitis B Core IgM Nonreactive (Nonreactive); Hepatitis B Surface Antigen Nonreactive (Nonreactive); Hepatitis C Virus Antibody Nonreactive (Nonreactive)
[2016-05-31] MEDS: Budesonide/Formoterol 160/4.5 MDI IH SCH ×2 (11:24→22:15)
--- NOTE | 2016-05-31 14:46 | Vascular/Endovasc Consult Note ---
Date of Encounter: 05/31/16 Time of Encounter: 13:30 Assessment and Plan (1) Stenosis of left internal carotid artery with cerebral infarction Current Visit: Yes Status: Acute The patient recently developed a left hemispheric CVA with symptoms of confusion. Her confusion has resolved. She has no focal deficits on exam. She has a 60-79% LICA stenosis with a multifocal left hemispheric acute CVA by MRI. ASA 81mg and Plavix 75mg daily is recommended. The patient will follow-u in vascular clinic next week. She will be scheduled for a left carotid endarterectomy. The risks, benefits and alternatives were discussed and all questions were answered. The patient expressed understanding and wishes to proceed. She was instructed to seek immediate medical attention for signs or symptms of CVA, TIA or amaurosis fugax. (2) Carotid occlusion, right Current Visit: Yes Status: Chronic (3) CAD (coronary artery disease) Current Visit: Yes Status: Chronic Qualifiers: Coronary Disease-Associated Artery/Lesion type: [place] artery [place] vs. transplanted heart: [place] heart Associated angina: without angina Qualified Code(s): I25.10 - Atherosclerotic heart disease of [place] coronary artery without angina pectoris (4) COPD (chronic obstructive pulmonary disease) Current Visit: Yes Status: Chronic Qualifiers: COPD type: unspecified COPD Qualified Code(s): J44.9 - Chronic obstructive pulmonary disease, unspecified (5) Hyperlipidemia Current Visit: Yes Status: Chronic She was counseled regarding atherosclerotic risk factor reduction. Qualifiers: Hyperlipidemia type: mixed hyperlipidemia Qualified Code(s): E78.2 - Mixed hyperlipidemia (6) Hypertension Current Visit: Yes Status: Chronic Qualifiers: Hypertension type: essential hypertension Qualified Code(s): I10 - Essential (primary) hypertension (7) Tobacco abuse Current Visit: Yes Status: Chronic The patient was counseled regarding smoking cessation. - History of Present Illness Consult date: 05/31/16 Requesting physician: Vanessa Wheeler Consult reason: Carotid stenosis with CVA Chief complaint: Confusion History of present illness: Ms. Card is a 70 year old female with a history of peripheral vascular disease , abdominal aortic aneurysm, carotid stenosis, hypertension, hyperlipidemia, tobacco abuse and COPD who was admitted to [facility] with complaints of 3 days of confusion. She reported general malasie, but denied focal neurologic deficits. She underwent an MRI and was found to have multiple left hemispheric infarcts. The patient underwent a carotid duplex and was noted to have a right internal carotid and right common carotid artery occlusion. She was noted to have a 60-79% left internal carotid artery stenosis. She was seen by neurology and vascular surgery was consulted for further evaluation. She reports that since admission, she reports that her confusion has resolved. She denies chest pain or shortness of breath. Past Med Surg Social Fam HX - Past Medical History Medical history: aortic aneurysm, COPD, coronary artery disease, GERD, hyperlipidemia, hypertension, other Psychiatric history: anxiety - Past Surgical History Surgical History: carotid endarterectomy - Social History Smoking Status: Current every day smoker Packs per day: < 1 pack Smokeless Tobacco Status: No Alcohol use: occasionally Drug use: none - Family History Mother Family Member Ethnicity: Non- Living Status: Cause of : Cancer Hx Family Cardiac Disorders: Yes (HTN) Hx Family Cancer: Yes Medications and Allergies Albuterol Sulfate [Proair Hfa] 2 puff IH Q4H PRN 12/07/15 [History] Alendronate Sodium [Fosamax] 70 mg PO QWEEK 12/07/15 [History] Apixaban [Eliquis] 5 mg PO BID 12/07/15 [History] Aspirin Enteric Coated [Aspirin EC] 81 mg PO DAILY 12/07/15 [History] Calcium Carbonate/Vitamin D3 [Calcium 500-Vit D3 400 Tablet] 1 tab PO DAILY [History] Cyclobenzaprine HCl 5 mg PO TID PRN 12/07/15 [History] Esomeprazole Magnesium [Nexium] 40 mg PO DAILY 12/07/15 [History] Famotidine [Pepcid] 20 - 40 mg PO BID 12/07/15 [History] Fluticasone Propionate Nasal [Flonase] 2 spray NS DAILY 12/07/15 [History] Fluticasone/Salmeterol [Advair 250-50 Diskus] 1 puff IH BID 12/07/15 [History] Folic Acid 1 mg PO DAILY 12/07/15 [History] Furosemide [Lasix] 20 mg PO DAILY 12/07/15 [History] Gabapentin [Neurontin] 800 mg PO TID 12/07/15 [History] Guaifenesin [Mucinex] 600 mg PO BID 12/07/15 [History] Ipratropium/Albuterol Neb [Duoneb] 3 ml IH Q6HR 12/07/15 [History] Lubiprostone [Amitiza] 8 mcg PO BID 12/07/15 [History] Magnesium Hydroxide [Milk of Magnesia] 10 ml PO DAILY PRN 12/07/15 [History] Metoprolol XL (24 HR) Succ [Toprol Xl] 25 mg PO DAILY 12/07/15 [History] Nitroglycerin [Nitrostat] 0.4 mg SL AD PRN 12/07/15 [History] Sennosides [Senna] 8.6 mg PO DAILY PRN 12/07/15 [History] Tiotropium [Spiriva] 1 cap IH DAILY 12/07/15 [History] Phosphorus #1 [K-Phos Neutral Tablet] 250 mg PO TID #4 tablet 12/08/15 [Rx] Rosuvastatin [Crestor] 40 mg PO HS #60 tablet 12/08/15 [Rx] Clopidogrel [Plavix] 75 mg PO DAILY 05/30/16 [History] Ezetimibe [Zetia] 10 mg PO DAILY 05/30/16 [History] Potassium Chloride 20 meq PO BID 05/30/16 [History] Allergies steroids Adverse Reaction (Uncoded 12/05/15 18:48) See Comments "make my eyes go closed" All Systems Review: A 10-system review of systems was performed and is negative for pertinent findings except as documented above in the HPI. - Constitutional Constitutional: malaise, weakness (generalized), no chills, no fever(s), no night sweats - EENT Eyes: no blurred vision, no loss of vision - Cardiovascular Cardiovascular: no chest pain at rest, no chest pain with exertion, no dyspnea at rest, no dyspnea on exertion Exam General: Present: Conversant, No Apparent Distress HEENT: Present: Atraumatic, Normocephaly, Trachea midline, Pupils equal Neck: Present: Left Carotid bruit. Absent: JVD, Lymphadenopathy, Right Carotid bruit, Tracheal deviation Cardiac: Present: Reg Rate and Rhythm, Normal S1 and S2 Lungs: Present: Normal Breath Sounds, No Wheeze, Rales, Rhonchi Neuro: Present: Alert and responsive, No focal deficits noted, Cranial nerves grossly intact, Motor nerves grossly intact, Sensory nerves grossly intact Abdomen: Present: Soft, Non-tender. Absent: Hepatosplenomegaly, Masses Vascular: Present: Normal capillary refill. Absent: Clubbing, Cyanosis, Edema Skin: Present: No rashes noted on visualized skin Musculoskeletal: Present: No Chest Wall Tenderness Consult Discharge Plan - Plan Referrals: Mo Hernandes MD [Partnered Physician] - 06/05/16 3:40 pm NO,PCP [Non-Partnered Physician] -
[2016-05-31] MEDS ORDERED: Acetaminophen 325 MG TABLET PO PRN (14:48)
--- NOTE | 2016-05-31 16:25 | Electrocardiograph Report ---
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
--- NOTE | 2016-05-31 16:29 | Electrocardiograph Report ---
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
--- NOTE | 2016-05-31 17:11 | Pulmonology Progress Note ---
Date of Encounter: 05/31/16 Time of Encounter: 07:10 Assessment and Plan (1) CVA (cerebral vascular accident) Current Visit: Yes Status: Acute I discussed with neurologist and vascular surgeon and patient will be on Aspirin and Plavix with no full anticoagulation per Dr. Schroeder and discussed with neurologist as well. Patient liver enzyme is improving and monitor LFT because of statin treatment. Please refer to Dr. Schroeder and neurologist for further recommendations. Patient will be transferred to floor. Qualifiers: CVA mechanism: embolism Precerebral and cerebral artery: carotid artery Laterality of affected vessel: left Qualified Code(s): I63.132 - 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 (2) Elevated troponin Current Visit: Yes Status: Acute Appreciate radiation oncology therapist input. (3) Hypokalemia Current Visit: Yes Status: Acute (4) Carotid occlusion, right Current Visit: Yes Status: Chronic Per vascular management (5) Altered mental status Current Visit: Yes Status: Resolved Most likely it is secondary to the CVA and she is better now Qualifiers: Altered mental status type: unspecified Qualified Code(s): R41.82 - Altered mental status, unspecified Subjective Principal diagnosis: CVA and alter mental status Interval history: Patient is feeling better and denies any problems. She is alert and oriented. Objective PUL Vital signs: Last Vital Signs Temp 97.6 F 05/31/16 16:00 Pulse 80 05/31/16 11:00 Resp 19 05/31/16 16:02 BP 78/47 05/31/16 16:02 Pulse Ox 94 L 05/31/16 16:02 General appearance: no acute distress, alert Eyes: nonicteric ENT: oropharynx moist Mallampati (class): 2 Neck: supple, no JVD, other (scar in the right side of the carotid) Effort: normal Auscultation: bilateral: clear Percussion: bilateral: not dull Cardiovascular: regular rate and rhythm Gastrointestinal: normoactive bowel sounds, soft, tender Extremities: no cyanosis normal mental status, other (Slight weakness in the upper ext) mood appropriate Results - Laboratory Findings CBC and BMP: 05/31/16 09:40 05/31/16 02:40 PT/INR, D-dimer PT 9.6 Seconds (9.4-12.1) 05/31/16 09:40 Abnormal lab findings: Abnormal lab results Hgb 10.3 g/dL (11.5-15.4) L 05/31/16 09:40 Hct 35.1 % (35.3-44.9) L 05/31/16 09:40 MCH 24.7 pg (28.0-33.3) L 05/31/16 09:40 MCHC 29.3 g/dL (31.6-35.5) L 05/31/16 09:40 RDW 21.4 % (11.5-14.5) H 05/31/16 09:40 Plt Count 129 K/mcL (140-400) L 05/31/16 09:40 Nucleated RBCs/100 WBC 0.3 /100 WBC (0) H 05/30/16 10:47 Poikilocytosis 1+ (Not Present) A 05/30/16 10:47 Helmet Cells Present (Not Present) A 05/30/16 10:47 Potassium 2.5 mEq/L (3.5-4.5) L* 05/31/16 02:40 Chloride 114 mEq/L (98-109) H 05/31/16 02:40 Glucose 126 mg/dL (70-99) H 05/31/16 02:40 POC Glucose 170 (58-89) H 05/30/16 17:31 Calcium 7.5 mg/dL (8.6-10.8) L D 05/31/16 02:40 AST 39 Units/L (5-34) H 05/31/16 02:40 Troponin I 0.04 ng/mL (0-0.03) H* 05/30/16 22:10 Serum Total Protein 5.0 g/dL (6.0-8.3) L D 05/31/16 02:40 Albumin 2.4 g/dL (3.5-5.0) L D 05/31/16 02:40 Albumin/Globulin Ratio 0.9 (1.1-2.2) L 05/31/16 02:40 Urine Protein 30 mg/dL (Neg-Trace) H 05/30/16 17:18 Urine Microscopic RBC 3-5 per hpf (0-3) H 05/30/16 17:18 Ur Squamous Epith Cells Many per lpf (None-Few) H 05/30/16 17:18 Salicylates < 5.0 mg/dL (15-30) L 05/30/16 10:47 Acetaminophen < 1.0 mcg/mL (10-30) L 05/30/16 10:47 - Clinical Findings Intake & Output: Intake & Output 05/31/16 05/31/16 05/31/16 07:59 15:59 23:59 Intake Total 50 / 510 Balance 50 / 510 - VTE Documentation of Mechanical Device: Intermittent pneumatic compression device Consult Discharge Plan - Plan Referrals: Mo Hernandes MD [Partnered Physician] - 06/05/16 3:40 pm NO,PCP [Non-Partnered Physician] -
[2016-05-31] MEDS ORDERED: Naloxone 0.4 MG/ML INJ IVP PRN (20:04)
[2016-05-31] MEDS ORDERED: Patient Taking Own Medication 1 EACH PO SCH (20:04)
[2016-06-01] MEDS: Ampicillin/Sulbactam 3,000 MG in 0.9 % Sodium Chloride Mini Bag 100 ML IVPB SCH ×4 (01:40→20:20)
[2016-06-01] MEDS: Ipratropium/Albuterol Neb 3 ML IH SCH ×4 (03:21→21:09)
[2016-06-01] MEDS: Furosemide 20 MG TABLET PO SCH (07:51)
[2016-06-01] MEDS: Acetaminophen 325 MG TABLET PO PRN (07:52)
[2016-06-01] MEDS: Famotidine 20 MG TABLET PO SCH ×2 (07:52→20:21)
[2016-06-01] MEDS: Aspirin Enteric Coated 81 MG Tablet PO SCH (07:52)
[2016-06-01] MEDS: Folic Acid 1 MG TABLET PO SCH (07:52)
[2016-06-01] MEDS: Gabapentin 400 MG CAPSULE PO SCH ×3 (07:52→20:21)
[2016-06-01] MEDS: Tiotropium 18 MCG inhalation IH SCH (08:11)
[2016-06-01] MEDS: Fluticasone Propionate Nasal 50 MCG/SPRAY BOTTLE NS SCH (08:16)
[2016-06-01] MEDS: Patient Taking Own Medication 1 EACH PO SCH (08:18)
[2016-06-01] MEDS: Budesonide/Formoterol 160/4.5 MDI IH SCH ×2 (11:00→21:09)
[2016-06-01 11:19] LABS: Alanine Aminotransferase 63 Units/L (0-55); Albumin 2.7 g/dL (3.5-5.0); Albumin/Globulin Ratio 0.8 (1.1-2.2); Alkaline Phosphatase 64 Units/L (38-126); Aspartate Amino Transferase 70 Units/L (5-34); BUN/Creatinine Ratio 9 (6-26); Bilirubin,Total 0.4 mg/dL (0.2-1.2); Blood Urea Nitrogen 7 mg/dL (7-20); Calcium 8.2 mg/dL (8.6-10.8); Carbon Dioxide 27 mEq/L (19-29); Chloride 110 mEq/L (98-109); Globulin 3.2 g/dL (2.4-3.5); Glucose 101 mg/dL (70-99); Osmolality,Calculated 296 (280-300); Sodium 144 mEq/L (136-145); Total Protein 5.9 g/dL (6.0-8.3); eGFR For African Americans > 60 (> 60); eGFR For Non-African Americans > 60 (> 60)
--- NOTE | 2016-06-01 11:23 | Pulmonology Progress Note ---
Addendum entered and electronically signed by Karsten Coe DO 06/01/16 11:36: Patient stable for transfer to the floor. Sign out was provided to the admitting hospitalist, Dr. Ashton, who accepted the patient for transfer. Original Note: <Karsten Coe - Last Filed: 06/01/16 11:21> Date of Encounter: 06/01/16 Time of Encounter: 11:21 Assessment and Plan (1) CVA (cerebral vascular accident) Current Visit: Yes Status: Acute Likely related to left carotid plaque. Her allergy evaluated the patient. Deficits are minimal to time. Continue aspirin and Plavix. 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 Given the patient's severe peripheral vascular disease obtaining a peripheral blood pressure is somewhat difficult. Qualifiers: Hypotension type: unspecified hypotension type Qualified Code(s): I95.9 - Hypotension, unspecified (3) Severe peripheral arterial disease Current Visit: No Status: Chronic Carotid ultrasound shows complete occlusion of the right carotid artery and 60- 79% occlusion of the left carotid artery. Dr. Hernandes are evaluated the patient and will follow up with patient as an outpatient for possible CEA. (4) CHF (congestive heart failure) Current Visit: Yes Status: Acute Stable at this time. No evidence of acute exacerbation. Continue Lasix. Qualifiers: Congestive heart failure type: systolic Congestive heart failure chronicity : chronic Qualified Code(s): I50.22 - Chronic systolic (congestive) heart failure (5) Hypokalemia Current Visit: Yes Status: Acute Potassium was 3.1 on presentation. Yesterday was 2.5, this was replaced with 40 mEq IV as well as 40 mEq by mouth. Rechecked this morning is pending. Potassium is been restarted. We will continue to monitor. (6) DVT prophylaxis Current Visit: Yes Status: Acute EPCDs at this time. Subjective Principal diagnosis: CVA and alter mental status Interval history: Patient seen and examined at bedside. Patient states she feels pretty good today. Patient is asking to go home. She is not feel confused or weak at all. She has no complaints at this time. Objective PUL Vital signs: Last Vital Signs Temp 97.4 F L 06/01/16 11:06 Pulse 78 06/01/16 11:06 Resp 16 06/01/16 11:06 BP 154/77 06/01/16 11:06 Pulse Ox 98 06/01/16 11:06 General appearance: no acute distress Effort: normal Auscultation: bilateral: clear Cardiovascular: regular rate and rhythm Gastrointestinal: normoactive bowel sounds, soft, non-tender, non-distended Extremities: no cyanosis, no edema, no clubbing normal mental status, non-focal exam (No deficits noted) mood appropriate, affect normal Results - Laboratory Findings CBC and BMP: 05/31/16 09:40 05/31/16 02:40 PT/INR, D-dimer PT 9.6 Seconds (9.4-12.1) 05/31/16 09:40 Abnormal lab findings: Abnormal lab results Hgb 10.3 g/dL (11.5-15.4) L 05/31/16 09:40 Hct 35.1 % (35.3-44.9) L 05/31/16 09:40 MCH 24.7 pg (28.0-33.3) L 05/31/16 09:40 MCHC 29.3 g/dL (31.6-35.5) L 05/31/16 09:40 RDW 21.4 % (11.5-14.5) H 05/31/16 09:40 Plt Count 129 K/mcL (140-400) L 05/31/16 09:40 Nucleated RBCs/100 WBC 0.3 /100 WBC (0) H 05/30/16 10:47 Poikilocytosis 1+ (Not Present) A 05/30/16 10:47 Helmet Cells Present (Not Present) A 05/30/16 10:47 Potassium 2.5 mEq/L (3.5-4.5) L* 05/31/16 02:40 Chloride 114 mEq/L (98-109) H 05/31/16 02:40 Glucose 126 mg/dL (70-99) H 05/31/16 02:40 POC Glucose 170 (58-89) H 05/30/16 17:31 Calcium 7.5 mg/dL (8.6-10.8) L D 05/31/16 02:40 AST 39 Units/L (5-34) H 05/31/16 02:40 Troponin I 0.04 ng/mL (0-0.03) H* 05/30/16 22:10 Serum Total Protein 5.0 g/dL (6.0-8.3) L D 05/31/16 02:40 Albumin 2.4 g/dL (3.5-5.0) L D 05/31/16 02:40 Albumin/Globulin Ratio 0.9 (1.1-2.2) L 05/31/16 02:40 Urine Protein 30 mg/dL (Neg-Trace) H 05/30/16 17:18 Urine Microscopic RBC 3-5 per hpf (0-3) H 05/30/16 17:18 Ur Squamous Epith Cells Many per lpf (None-Few) H 05/30/16 17:18 Salicylates < 5.0 mg/dL (15-30) L 05/30/16 10:47 Acetaminophen < 1.0 mcg/mL (10-30) L 05/30/16 10:47 - Clinical Findings Intake & Output: Intake & Output 05/31/16 06/01/16 06/01/16 23:59 07:59 15:59 Intake Total 460 / 460 100 / 100 240 / 240 Output Total 1900 / 1900 700 / 700 250 / 250 Balance -1440 / -1440 -600 / -600 -10 / -10 Weight 57.691 kg - VTE Documentation of Mechanical Device: Intermittent pneumatic compression device Consult Discharge Plan - Plan Referrals: Mo Hernandes MD [Partnered Physician] - 06/05/16 3:40 pm NO,PCP [Non-Partnered Physician] - <Vanessa Wheeler - Last Filed: 06/01/16 14:15> Date of Encounter: 06/01/16 Assessment and Plan (1) CVA (cerebral vascular accident) Current Visit: Yes Status: Acute Qualifiers: CVA mechanism: embolism Precerebral and cerebral artery: carotid artery Laterality of affected vessel: left Qualified Code(s): I63.132 - 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 (2) Elevated troponin Current Visit: Yes Status: Acute (3) Hypokalemia Current Visit: Yes Status: Acute (4) Carotid occlusion, right Current Visit: Yes Status: Chronic (5) Altered mental status Current Visit: Yes Status: Resolved Qualifiers: Altered mental status type: unspecified Qualified Code(s): R41.82 - Altered mental status, unspecified Objective PUL Vital signs: Last Vital Signs Temp 97.4 F L 06/01/16 11:06 Pulse 78 06/01/16 11:06 Resp 16 06/01/16 11:06 BP 154/77 06/01/16 11:06 Pulse Ox 98 06/01/16 11:06 Results - Laboratory Findings CBC and BMP: 05/31/16 09:40 06/01/16 10:54 PT/INR, D-dimer PT 9.6 Seconds (9.4-12.1) 05/31/16 09:40 Abnormal lab findings: Abnormal lab results Hgb 10.3 g/dL (11.5-15.4) L 05/31/16 09:40 Hct 35.1 % (35.3-44.9) L 05/31/16 09:40 MCH 24.7 pg (28.0-33.3) L 05/31/16 09:40 MCHC 29.3 g/dL (31.6-35.5) L 05/31/16 09:40 RDW 21.4 % (11.5-14.5) H 05/31/16 09:40 Plt Count 129 K/mcL (140-400) L 05/31/16 09:40 Nucleated RBCs/100 WBC 0.3 /100 WBC (0) H 05/30/16 10:47 Poikilocytosis 1+ (Not Present) A 05/30/16 10:47 Helmet Cells Present (Not Present) A 05/30/16 10:47 Chloride 110 mEq/L (98-109) H 06/01/16 10:54 Glucose 101 mg/dL (70-99) H 06/01/16 10:54 POC Glucose 170 (58-89) H 05/30/16 17:31 Calcium 8.2 mg/dL (8.6-10.8) L 06/01/16 10:54 AST 70 Units/L (5-34) H 06/01/16 10:54 ALT 63 Units/L (0-55) H 06/01/16 10:54 Troponin I 0.04 ng/mL (0-0.03) H* 05/30/16 22:10 Serum Total Protein 5.9 g/dL (6.0-8.3) L 06/01/16 10:54 Albumin 2.7 g/dL (3.5-5.0) L 06/01/16 10:54 Albumin/Globulin Ratio 0.8 (1.1-2.2) L 06/01/16 10:54 Urine Protein 30 mg/dL (Neg-Trace) H 05/30/16 17:18 Urine Microscopic RBC 3-5 per hpf (0-3) H 05/30/16 17:18 Ur Squamous Epith Cells Many per lpf (None-Few) H 05/30/16 17:18 Salicylates < 5.0 mg/dL (15-30) L 05/30/16 10:47 Acetaminophen < 1.0 mcg/mL (10-30) L 05/30/16 10:47 - Clinical Findings Intake & Output: Intake & Output 05/31/16 06/01/16 06/01/16 23:59 07:59 15:59 Intake Total 460 / 460 100 / 100 240 / 240 Output Total 1900 / 1900 700 / 700 250 / 250 Balance -1440 / -1440 -600 / -600 -10 / -10 Weight 57.691 kg - Attending Attestation I examined this patient and my medical decision-making was reviewed with the SKILLED LABORER/PA/Advanced Practice Nurse/Resident Physician. I agree with the documented findings, disposition and treatment plan as described except to the extent set forth below. Patient seen and examined. Labs, radiology, chart personally reviewed. 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 Patient will need to follow up with dentist Renal; urine out put and renal funtion reviewed Endorcine: blood glucose is monitored Lines: all lines checked and no evidence of infections Patient will be transferred to the floor.
[2016-06-01 11:25] LABS: Potassium 3.9 mEq/L (3.5-4.5)
--- NOTE | 2016-06-01 13:03 | Neurology Progress Note ---
Date of Encounter: 06/05/16 Time of Encounter: 08:50 Assessment and Plan (1) CVA (cerebral vascular accident) Status: Acute clinically stable, no new defecit, Pt has been discussed with vascualr surgery, as per note, pt known to Dr Hernandes, who has suggested Antiplatelet therapy instead of anticoagulation, considering pt is stable and if her carotid plaque is stable in that case it should be OK, to change to antiplatelt therapy. along with Statin, she would need CEA in next few weeks. 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 Subjective Principal diagnosis: CVA and alter mental status Objective - Constitutional Vitals: Temp Pulse Resp BP Pulse Ox 97.4 F L 78 16 154/77 98 06/01/16 11:06 06/01/16 11:06 06/01/16 11:06 06/01/16 11:06 06/01/16 11:06 - Neurological Exam Sensorimotor examination: Present: intact Motor examination - left side: 4/5: deltoids, biceps, triceps, quadriceps, tibialis Anterior, plantarflexion Sensation intact: Present: intact Mental Status Examination: Present: awake, alert, oriented to person, oriented to place, follows commands appropriately, no aphasia, makes eye contact Cranial nerve examination: Present: PERRL, EOMI, sensory to face intact, mastication intact, no facial asymmetry is present, no dysarthria, hearing is intact symmetrically - VTE Documentation of Mechanical Device: Intermittent pneumatic compression device Results - Laboratory Findings CBC and BMP: 06/02/16 08:06 06/02/16 08:06 Abnormal lab findings: Abnormal lab results Hgb 10.3 g/dL (11.5-15.4) L 05/31/16 09:40 Hct 35.1 % (35.3-44.9) L 05/31/16 09:40 MCH 24.7 pg (28.0-33.3) L 05/31/16 09:40 MCHC 29.3 g/dL (31.6-35.5) L 05/31/16 09:40 RDW 21.4 % (11.5-14.5) H 05/31/16 09:40 Plt Count 129 K/mcL (140-400) L 05/31/16 09:40 Nucleated RBCs/100 WBC 0.3 /100 WBC (0) H 05/30/16 10:47 Poikilocytosis 1+ (Not Present) A 05/30/16 10:47 Helmet Cells Present (Not Present) A 05/30/16 10:47 Chloride 110 mEq/L (98-109) H 06/01/16 10:54 Glucose 101 mg/dL (70-99) H 06/01/16 10:54 POC Glucose 170 (58-89) H 05/30/16 17:31 Calcium 8.2 mg/dL (8.6-10.8) L 06/01/16 10:54 AST 70 Units/L (5-34) H 06/01/16 10:54 ALT 63 Units/L (0-55) H 06/01/16 10:54 Troponin I 0.04 ng/mL (0-0.03) H* 05/30/16 22:10 Serum Total Protein 5.9 g/dL (6.0-8.3) L 06/01/16 10:54 Albumin 2.7 g/dL (3.5-5.0) L 06/01/16 10:54 Albumin/Globulin Ratio 0.8 (1.1-2.2) L 06/01/16 10:54 Urine Protein 30 mg/dL (Neg-Trace) H 05/30/16 17:18 Urine Microscopic RBC 3-5 per hpf (0-3) H 05/30/16 17:18 Ur Squamous Epith Cells Many per lpf (None-Few) H 05/30/16 17:18 Salicylates < 5.0 mg/dL (15-30) L 05/30/16 10:47 Acetaminophen < 1.0 mcg/mL (10-30) L 05/30/16 10:47 Consult Discharge Plan - Plan Instructions: Aspirin (By mouth), Clopidogrel (By mouth), Coronary Artery Disease in Women (DC), Using Oxygen at Home (DC), Ischemic Stroke (DC), Chronic Hypertension (DC) Referrals: Mo Hernandes MD [Partnered Physician] - 06/05/16 3:40 pm NO,PCP [Non-Partnered Physician] - Prescriptions: Aspirin Enteric Coated [Aspirin EC] 81 mg PO DAILY #30 tablet. Clopidogrel [Plavix] 75 mg PO DAILY #30 tablet
[2016-06-01] MEDS ORDERED: Nicotine 2 MG GUM BC PRN (15:07)
[2016-06-02] MEDS: Ampicillin/Sulbactam 3,000 MG in 0.9 % Sodium Chloride Mini Bag 100 ML IVPB SCH ×3 (02:36→14:36)
[2016-06-02] MEDS: Ipratropium/Albuterol Neb 3 ML IH SCH ×3 (04:10→15:18)
[2016-06-02 08:17] LABS: Basophils % 0.3 %; Eosinophils % 0.3 %; Hematocrit 33.4 % (35.3-44.9); Hemoglobin 9.8 g/dL (11.5-15.4); Immature Granulocytes % 0.3 % (0-4); Immature Platelets 6.8 % (1.1-6.1); Lymphocytes % 15.9 %; Mean Corpuscular HGB Conc 29.3 g/dL (31.6-35.5); Mean Corpuscular Hemoglobin 24.4 pg (28.0-33.3); Mean Corpuscular Volume 83.3 fL (83.0-100.0); Mean Platelet Volume 11.5 fL (9.4-12.4); Monocytes # 0.4 K/mcL (0.0-1.3); Monocytes % 5.9 %; Neutrophils # 4.9 K/mcL (1.6-8.9); Platelet Count 120 K/mcL (140-400); Red Blood Count 4.01 M/mcL (3.82-4.97); Red Cell Distribution Width 21.3 % (11.5-14.5); Segmented Neutrophils % 77.3 %
[2016-06-02] MEDS: Tiotropium 18 MCG inhalation IH SCH (08:29)
[2016-06-02 08:30] LABS: BUN/Creatinine Ratio 10 (6-26); Blood Urea Nitrogen 7 mg/dL (7-20); Calcium 8.9 mg/dL (8.6-10.8); Carbon Dioxide 26 mEq/L (19-29); Chloride 110 mEq/L (98-109); Glucose 95 mg/dL (70-99); Osmolality,Calculated 296 (280-300); Potassium 4.1 mEq/L (3.5-4.5); Sodium 144 mEq/L (136-145); eGFR For African Americans > 60 (> 60); eGFR For Non-African Americans > 60 (> 60)
[2016-06-02] MEDS: Patient Taking Own Medication 1 EACH PO SCH (08:30)
[2016-06-02] MEDS: Aspirin Enteric Coated 81 MG Tablet PO SCH (08:35)
[2016-06-02] MEDS: Folic Acid 1 MG TABLET PO SCH (08:36)
[2016-06-02] MEDS: Gabapentin 400 MG CAPSULE PO SCH ×2 (08:36→14:36)
[2016-06-02] MEDS: Famotidine 20 MG TABLET PO SCH (08:36)
[2016-06-02] MEDS: Fluticasone Propionate Nasal 50 MCG/SPRAY BOTTLE NS SCH ×2 (08:36→08:59)
[2016-06-02] MEDS: Furosemide 20 MG TABLET PO SCH (08:36)
[2016-06-02 08:49] LABS: Large Platelets Present (Not Present); Platelet Estimate Decreased (Normal)
[2016-06-02] MEDS: Acetaminophen 325 MG TABLET PO PRN (09:01)
--- NOTE | 2016-06-02 10:29 | Discharge Summary ---
Date of Encounter: 06/02/16 Time of Encounter: 10:26 - Discharge Diagnosis (1) CVA (cerebral vascular accident) Priority: Primary Status: Acute Qualifiers: CVA mechanism: embolism Precerebral and cerebral artery: carotid artery Laterality of affected vessel: left Qualified Code(s): I63.132 - 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 (2) Stenosis of left internal carotid artery with cerebral infarction Priority: Secondary Status: Acute (3) Cigarette smoker Priority: Secondary Status: Acute (4) DVT prophylaxis Priority: Secondary Status: Acute (5) Tobacco abuse Priority: Secondary Status: Chronic - Discharge Medications Prescriptions: Aspirin Enteric Coated [Aspirin EC] 81 mg PO DAILY #30 tablet. Clopidogrel [Plavix] 75 mg PO DAILY #30 tablet Home Medications: Albuterol Sulfate [Proair Hfa] 2 puff IH Q4H PRN 12/07/15 [History] Alendronate Sodium [Fosamax] 70 mg PO QWEEK 12/07/15 [History] Calcium Carbonate/Vitamin D3 [Calcium 500-Vit D3 400 Tablet] 1 tab PO DAILY [History] Cyclobenzaprine HCl 5 mg PO TID PRN 12/07/15 [History] Esomeprazole Magnesium [Nexium] 40 mg PO DAILY 12/07/15 [History] Famotidine [Pepcid] 20 - 40 mg PO BID 12/07/15 [History] Fluticasone Propionate Nasal [Flonase] 2 spray NS DAILY 12/07/15 [History] Fluticasone/Salmeterol [Advair 250-50 Diskus] 1 puff IH BID 12/07/15 [History] Folic Acid 1 mg PO DAILY 12/07/15 [History] Furosemide [Lasix] 20 mg PO DAILY 12/07/15 [History] Gabapentin [Neurontin] 800 mg PO TID 12/07/15 [History] Guaifenesin [Mucinex] 600 mg PO BID 12/07/15 [History] Ipratropium/Albuterol Neb [Duoneb] 3 ml IH Q6HR 12/07/15 [History] Lubiprostone [Amitiza] 8 mcg PO BID 12/07/15 [History] Magnesium Hydroxide [Milk of Magnesia] 10 ml PO DAILY PRN 12/07/15 [History] Metoprolol XL (24 HR) Succ [Toprol Xl] 25 mg PO DAILY 12/07/15 [History] Nitroglycerin [Nitrostat] 0.4 mg SL AD PRN 12/07/15 [History] Sennosides [Senna] 8.6 mg PO DAILY PRN 12/07/15 [History] Tiotropium [Spiriva] 1 cap IH DAILY 12/07/15 [History] Phosphorus #1 [K-Phos Neutral Tablet] 250 mg PO TID #4 tablet 12/08/15 [Rx] Rosuvastatin [Crestor] 40 mg PO HS #60 tablet 12/08/15 [Rx] Ezetimibe [Zetia] 10 mg PO DAILY 05/30/16 [History] Potassium Chloride 20 meq PO BID 05/30/16 [History] Aspirin Enteric Coated [Aspirin EC] 81 mg PO DAILY #30 tablet. 06/02/16 [Rx] Clopidogrel [Plavix] 75 mg PO DAILY #30 tablet 06/02/16 [Rx] Allergies/Adverse Reactions: Allergies steroids Adverse Reaction (Uncoded 12/05/15 18:48) See Comments "make my eyes go closed" Date of admission: 05/31/16 12:30 Primary care physician: John Ellis MD Discharging clinician: Rakesh Mariano Anticipated date of discharge: 06/02/16 - Patient Status Disposition: Home Health Service Condition: Fair Functional capacity at discharge: independent ambulation Overall status at discharge: patient is back to baseline - Discharge Instructions Follow Up With: Mo Hernandes MD [Partnered Physician] - 06/05/16 3:40 pm NO,PCP [Non-Partnered Physician] - - Diet and Activity Activity: as per physical therapy Diet: low fat, low cholesterol Interval History: Ms. Card is a 70 year old female with PMH of severe PAD s/p CEA, DVT in November 2011 on anticoagulation, HTN, HLD, COPD, CHF, CAD, vitamin D deficiency who is brought to the ER for evaluation of change in mental status. As per the ER physician, upon arrival patient was confused and only oriented to self and place. She was noted to have expressive aphasia. She was noted to be severe confused by her home health aide who called EMS for transfer to the ER. During my evaluation, patient is resting in bed, is AAO x 3, states she has been confused for the last three days. She didn't remember how to do any of her everyday chores. States she is supposed to be on home oxygen but does not use it as directed. She is an every day smoker. Patient is a poor historian and not able to provide complete history due to which med history is obtained from prior records. She reports of living alone and having family near by that help her with her groceries and doctor appointments. Reports of seeing her PCP last week. At this time she states she feels comfortable, denies any headache, lightheadedness, dizziness, chest pain, palpitations, sob, abd pain, n/v, fever , or chills. Reports of having diarrhea at home for the last few days but no episodes as of today. Pt was noted to be hypotensive in the ER and received 1L NS. She has documented history of hypertension,however has been known to have low BP readings during the past hospitalizations. Her CT head is also concerning for acute ischemia in the left parietal lobe and further evaluation by MRI is recommended. Patient was also noted to have positive TNI in the ER but denies any chest pain. Social Hx: Everyday smoker 1ppd x 30+years, occasional alcohol use Hospital course: Ms. Card is a 70 year old female admitted due to an acute CVA, initially hypotensive which responded to IV fluid therapy. Upon presentation she was monitored in the intensive care unit for concerns about persistent hypotension. Brain MRI revealed multiple acute infarcts in the peripheral left middle cerebral artery territories concerning for embolic etiology from the left internal carotid artery which was confirmed in the carotid duplex. No evidence of intracranial hemorrhage or mass effect. She has improved clinically, her neurological status is currently her baseline. Further workup revealed that the patient has significant left carotid artery stenosis. She was evaluated by vascular surgery, they recommended to continue with both aspirin and Plavix and we will reevaluate the patient as outpatient for possibility of endarterectomy. Carotid duplex revealed that the right common and internal carotid arteries were occluded, left proximal internal artery plaque with 60-79% stenosis. She underwent an echo Which Revealed an Evidence of Mild Diastolic Dysfunction of the Left Ventricle, Normal Right Ventricular Size and Function, Mild Aortic Regurgitation, Mild Mitral Regurgitation and No Signs of Pulmonary Hypertension. She was evaluated by neurology, physical therapy recommended home health services. Her vital signs are stable along with her blood work. At this point due to acute stroke will not reinitiate anticoagulation, we will continue with both aspirin and Plavix as recommended by both neurology and vascular surgery. The discharge plan was discussed in detail with the patient, she expressed understanding. - Time Spent with Patient Total time spent providing and/or coordinating discharge services: Greater than 30 minutes - Constitutional Vitals: Temp Pulse Resp BP Pulse Ox 97.9 F 93 16 166/87 100 06/02/16 06:42 06/02/16 09:00 06/02/16 06:42 06/02/16 06:42 06/02/16 09:00 General appearance: Present: cooperative, A&O X 3, no acute distress, underweight, answers questions appropriately - Head Head exam: Present: atraumatic, normocephalic - Eye Eye exam: Present: PERRL, conjuntiva pink, sclera anicteric Pupils: Present: PERRL - Neck Neck exam general surgery: Present: supple, trachea midline. Absent: lymphadenopathy - Respiratory Respiratory exam: Present: CTAB. Absent: accessory muscle use, rales, rhonchi, wheezes - Cardiovascular Cardiovascular exam: Present: RRR, +S1, +S2. Absent: diastolic murmur, gallop, rubs, systolic murmur - GI/Abdominal GI/Abdominal exam: Present: normal bowel sounds, soft, no peritoneal signs. Absent: distended, tenderness - Extremities Exam Extremities exam: Present: warm, radial pulses palpable and symetrical. Absent : calf tenderness, cyanotic, pedal edema - Neurological Exam Neurological exam: Present: CN II-XII intact, oriented X3, no focal deficits. Absent: pronater drift, facial droop, speech deficit - Skin Skin exam: Present: dry, intact - VTE Documentation of Mechanical Device: Intermittent pneumatic compression device
--- NOTE | 2016-06-02 10:35 | Physician Discharge Referral ---
Home Health/Hosp Referral Info Transfer to: Home Health Provider in Charge Post Discharge: PCP - Diagnosis (1) CVA (cerebral vascular accident) Status: Acute (2) Stenosis of left internal carotid artery with cerebral infarction Status: Acute (3) Cigarette smoker Status: Acute (4) DVT prophylaxis Status: Acute (5) Tobacco abuse Status: Chronic - Respiratory Orders Smoking Cessation: Smoking cessation has been advised. For more information, call the [place] Tobacco Quit Line at 3-395-NGCQ-NOW. - Diet/Nutrition Diet/Nutrition Orders: Cardiac - Activity Activity Orders: Up ad leah, Ambulate - Services Needed Following services are medically necessary services: Nursing, Home Health Aide, Physical Therapy - Transfer Medications Prescriptions: Aspirin Enteric Coated [Aspirin EC] 81 mg PO DAILY #30 tablet. Clopidogrel [Plavix] 75 mg PO DAILY #30 tablet Home Medications: Albuterol Sulfate [Proair Hfa] 2 puff IH Q4H PRN 12/07/15 [History] Alendronate Sodium [Fosamax] 70 mg PO QWEEK 12/07/15 [History] Calcium Carbonate/Vitamin D3 [Calcium 500-Vit D3 400 Tablet] 1 tab PO DAILY [History] Cyclobenzaprine HCl 5 mg PO TID PRN 12/07/15 [History] Esomeprazole Magnesium [Nexium] 40 mg PO DAILY 12/07/15 [History] Famotidine [Pepcid] 20 - 40 mg PO BID 12/07/15 [History] Fluticasone Propionate Nasal [Flonase] 2 spray NS DAILY 12/07/15 [History] Fluticasone/Salmeterol [Advair 250-50 Diskus] 1 puff IH BID 12/07/15 [History] Folic Acid 1 mg PO DAILY 12/07/15 [History] Furosemide [Lasix] 20 mg PO DAILY 12/07/15 [History] Gabapentin [Neurontin] 800 mg PO TID 12/07/15 [History] Guaifenesin [Mucinex] 600 mg PO BID 12/07/15 [History] Ipratropium/Albuterol Neb [Duoneb] 3 ml IH Q6HR 12/07/15 [History] Lubiprostone [Amitiza] 8 mcg PO BID 12/07/15 [History] Magnesium Hydroxide [Milk of Magnesia] 10 ml PO DAILY PRN 12/07/15 [History] Metoprolol XL (24 HR) Succ [Toprol Xl] 25 mg PO DAILY 12/07/15 [History] Nitroglycerin [Nitrostat] 0.4 mg SL AD PRN 12/07/15 [History] Sennosides [Senna] 8.6 mg PO DAILY PRN 12/07/15 [History] Tiotropium [Spiriva] 1 cap IH DAILY 12/07/15 [History] Phosphorus #1 [K-Phos Neutral Tablet] 250 mg PO TID #4 tablet 12/08/15 [Rx] Rosuvastatin [Crestor] 40 mg PO HS #60 tablet 12/08/15 [Rx] Ezetimibe [Zetia] 10 mg PO DAILY 05/30/16 [History] Potassium Chloride 20 meq PO BID 05/30/16 [History] Aspirin Enteric Coated [Aspirin EC] 81 mg PO DAILY #30 tablet. 06/02/16 [Rx] Clopidogrel [Plavix] 75 mg PO DAILY #30 tablet 06/02/16 [Rx] Allergies/Adverse Reactions: Allergies steroids Adverse Reaction (Uncoded 12/05/15 18:48) See Comments "make my eyes go closed" Certification: Further, I certify that my clinical findings support that this patient is homebound (i.e. absences from home require considerable and taxing effort and are for medical reasons or yazidism services or infrequently or short duration when for other reasons) because: Homebound Reason: Patient requires assistance of a person or device to safely leave home, Leaving home requires considerable and taxing effort due to condition Attestation: My signature below is to certify that this patient is under my care and that I, or nurse practitioner, or a physician's assistant professor of geography working with me, has a face-to -face encounter with this patient.
[2016-06-02] MEDS: Budesonide/Formoterol 160/4.5 MDI IH SCH (10:38)
[2016-06-02] MEDS ORDERED: amLODIPine 5 MG TABLET PO ONE (10:53)
[2016-06-02 12:35] VITALS: BP 120/100
== END 2016-06-02 17:22 | disposition home health service (06) | DRG 64 ==
LOC: EMEROO 10:23 → 3BNU 10:23 → ICNU 17:27 → SUATTDRO 05-31 12:30 → 2ANU 06-01 10:13
PROVIDERS: ADMIT Internal Medicine; ATTEND Internal Medicine